=== PATIENT | female | born 1930 | race Caucasian/White ===

== ENCOUNTER 2018-05-03 09:40 | Observation (INO) | payer MEDICARE, BC ==
--- NOTE | 2018-05-03 10:09 | Emergency Department Record ---
History of Present Illness - General Chief Complaint: Confusion Stated Complaint: Confusion Time Seen by Provider: 05/03/18 09:56 Source: Patient, Family Mode of Arrival: Ambulatory Limitations: No limitations - History of Present Illness Initial Comments: The patient is here with her son due to being confused for about 3 days. The confusion seems to be waxing and waning and has gotten progressively worse. There is no hx of trauma, fall, fever, chills, vomiting, or diarrhea. Presently the patient is only complaining of pain all over. When asked if she can elaborate on that she is unable to. Per her son the patient's gait is more unsteady than normal. MD Complaint: Confusion Onset/Timin -: Days(s) Severity: Mild Consistency: Intermittent Context: Unknown Associated Symptoms: Headaches - Related Data Allergies Allergy/AdvReac Type Severity Reaction Status Date / Time meperidine HCl [From Demerol] Allergy Severe SWELLING Unverified 07/21/16 16:19 (GENERAL) Travel Screening - Travel/Exposure Within Last 30 Days Have you traveled within the last 30 days?: No Review of Systems Constitutional: Denies: Chills, Fever Eyes: Denies: Eye discharge ENT: Denies: Congestion Respiratory: Denies: Cough, Dyspnea Cardiovascular: Denies: Arrhythmia, Chest pain Endocrine: Denies: Fatigue Gastrointestinal: Denies: Abdominal pain, Diarrhea, Nausea, Vomiting Genitourinary: Denies: Dysuria Musculoskeletal: Denies: Arthralgia Neurological: Reports: Abnormal gait, Confusion Past Medical History - SOCIAL HISTORY Smoking Status: Former smoker - RESPIRATORY Hx Respiratory Disorders: No - CARDIOVASCULAR Hx Cardio Disorders: Yes Hx Heart Attack: Yes (15-20 years ago) Hx Hypertension: Yes (now hypotensive) Hx Hypotension: Yes Comment:: health works every day - NEURO Hx Neuro Disorders: Yes Hx CVA: Yes Hx Seizures: No - GI Hx GI Disorders: No - Hx Genitourinary Disorders: No Comment:: hysterectomy - ENDOCRINE Hx Endocrine Disorders: No - MUSCULOSKELETAL Hx Musculoskeletal Disorders: Yes Hx Arthritis: Yes Comment:: pain and cyst right index finger - PSYCH Hx Psych Problems: No - HEMATOLOGY/ONCOLOGY Hx Hematology/Oncology Disorders: No Hx Blood Transfusions: No Family Medical History Any Significant Family History?: Yes Hx Heart Disease: Father, Mother Hx Stroke: Grandparents Physical Exam - General General Appearance: Alert, Cooperative, No acute distress - Head Head exam: Atraumatic, Normocephalic - Eye Eye exam: Normal appearance, PERRL, EOMI - ENT ENT exam: Normal exam, Mucous membranes moist, Normal external ear exam, Normal orophraynx, TM's normal bilaterally Throat exam: Normal inspection. negative: Tonsillar erythema, Tonsillar exudate - Neck Neck exam: Normal inspection, Full ROM. negative: Lymphadenopathy, Meningismus , Tenderness - Respiratory Respiratory exam: Normal lung sounds bilaterally. negative: Respiratory distress - Cardiovascular Cardiovascular Exam: Normal heart sounds, Irregular rhythm. negative: Regular rate, Normal rhythm - GI/Abdominal GI/Abdominal exam: Soft, Normal bowel sounds. negative: Tenderness - Extremities Extremities exam: Normal inspection, Full ROM, Normal capillary refill. negative: Tenderness - Back Back exam: Reports: Normal inspection - Neurological Neurological exam: Abnormal gait, Alert. negative: Normal gait, Oriented X3 ( The patient is oriented to name, place but not sure about the date. ) - Psychiatric Psychiatric exam: negative: Agitated, Anxious - Skin Skin exam: negative: Rash Course Vital Signs 05/03/18 09:45 Temperature 97.5 F L Pulse Rate 68 Respiratory 18 Rate Blood Pressure 131/73 Pulse Ox 95 - Reevaluation(s) Reevaluation #1: The patient is doing OK at this time. She does have a mild MARIA and has been quite unsteady on her feet. Due to that fact I do feel the patient will need to stay in the hospital overnight. We will contact her PCP for further eval. 05/03/18 11:38 Reevaluation #2: I did discuss the issues with Dr. Ruiz who is environment artist for admissions and he did agree to admit the patient to the hospital overnight. 05/03/18 12:04 Medical Decision Making - Data Complexity MDM Data: Labs Ordered and/or Reviewed, X-Ray Ordered and/or Reviewed, EKG Ordered and/or Reviewed - Lab Data Result diagrams: 05/03/18 10:10 05/03/18 10:10 - EKG Data -: EKG Interpreted by Me EKG: Abnormal EKG (Afib with LBBB. (old)) - Radiology Data Radiology results: Report reviewed (Head CT: Neg for bleed or acute changes per Rad.), Image reviewed (CXR: No acute dz pattern.) Disposition Disposition: Admit Clinical Impression: Weakness, Confusion and disorientation Disposition: Still a Patient at [facility] Decision to Admit: Admit from ER Decision to Admit Date: 05/03/18 Decision to Admit Time: 12:05 Accepting Physician: Sara Time Discussed w/Accepting Physician: 12:05 Condition: (2) Stable Time of Disposition: 12:05 Quality - Quality Measures Quality Measures: N/A - Blood Pressure Screening View Details: Yes Does Patient Have Any of the Following: No Blood Pressure Classification: Pre-Hypertensive BP Reading Systolic Measurement: 131 Diastolic Measurement: 73 Screening for High Blood Pressure: < Pre-Hypertensive BP, F/U Documented > [ [id number]] Pre-Hypertensive Follow-up Interventions: Referral to alternative/primary care provider.
[2018-05-03 10:19] LABS: BASO % 0.1 % (0-6); EOS % 0.2 % (0-6); GRAN % 79.3 % (47-80); HEMOGLOBIN 12.8 gm/dl (11.6-16.0); LYMPH % 9.7 % (16-45); MEAN CELL VOLUME 91.8 fl (81-97); MEAN CORPUSCULAR HEMOGLOBIN 30.1 pg (27-33); MEAN CORPUSCULAR HGB CONC 32.8 g/dl (32-36); MEAN PLATELET VOLUME 9.8 fl (7.4-10.4); MONO % 10.7 % (0-9); PLATELET COUNT 223 K/uL (130-400); RED BLOOD COUNT 4.25 M/uL (3.80-5.40); RED CELL DISTRIBUTION WIDTH 13.4 % (11.5-14.5)
[2018-05-03 10:28] LABS: BLOOD UREA NITROGEN 29 mg/dL (8-23); CREATININE 1.3 mg/dL (0.5-0.9); EST GLOMERULAR FILTRATION RATE 41 mL/min
[2018-05-03 10:29] LABS: TOTAL PROTEIN 6.8 g/dL (6.6-8.7)
[2018-05-03 10:31] LABS: GLUCOSE,RANDOM 112 mg/dL (74-109); INR 1.2; PARTIAL THROMBOPLASTIN TIME 34.8 SECONDS (24.5-39.1)
[2018-05-03 10:33] LABS: ALB/GLOB RATIO 1.1 (1.1-1.8); ALBUMIN 3.5 g/dL (4.0-5.0); ALKALINE PHOSPHATASE 83 U/L (35-104); ALT/SGPT 18 U/L (<33); AST/SGOT 29 U/L (10.0-35.0)
[2018-05-03 10:34] LABS: CREATINE PHOSPHOKINASE 259 U/L (26-192)
[2018-05-03 10:38] LABS: CKMB 3.3 ng/mL (<3.77)
[2018-05-03 10:44] LABS: THYROID STIMULATING HORMONE 2.31 uIU/mL (0.270-4.20)
[2018-05-03 11:13] LABS: URINE APPEARANCE CLEAR; URINE BILIRUBIN NEGATIVE (NEGATIVE); URINE BLOOD NEGATIVE (NEGATIVE); URINE COLOR YELLOW; URINE GLUCOSE (UA) NEGATIVE (NEGATIVE); URINE KETONE TRACE (NEGATIVE); URINE LEUKOCYTE ESTERASE NEGATIVE (NEGATIVE); URINE NITRITE NEGATIVE (NEGATIVE); URINE PROTEIN NEGATIVE (NEGATIVE)
[2018-05-03] MEDS ORDERED: ACETAMINOPHEN 325 MG TAB PO ONE (11:20)
[2018-05-03] MEDS ORDERED: 0.9 % SODIUM CHLORIDE 1,000 ML BAG IV ONE (11:21)
[2018-05-03] MEDS ORDERED: NITROGLYCERIN 0.4MG SL TABLET #25 BTL SL PRN (14:02)
[2018-05-03 16:29] LABS: CKMB 2.9 ng/mL (<3.77)
[2018-05-03] MEDS: METOPROLOL TART 25 MG TABLET PO SCH (21:53)
[2018-05-03] MEDS: APIXABAN 5MG TABLET PO SCH (21:54)
[2018-05-04 00:18] LABS: CKMB 2.2 ng/mL (<3.77)
[2018-05-04] MEDS ORDERED: PANTOPRAZOLE SODIUM 40 MG TABLET PO SCH (07:00)
--- NOTE | 2018-05-04 07:26 | CT SCAN REPORT ---
EXAM: CT OF THE BRAIN WITHOUT CONTRAST HISTORY: CONFUSION. TECHNIQUE: Sequential axial images were obtained from the foramen magnum to the vertex without contrast administration. Comparison: 07/10/16. FINDINGS: The brain volume is normal. There is periventricular small vessel ischemia. No large territorial infarct, hemorrhage, mass effect, or midline shift. There is intracranial vascular calcification. The orbits appear normal. There is right ethmoid sinus disease. The mastoid air cells appear normal. IMPRESSION: 1. PERIVENTRICULAR SMALL VESSEL ISCHEMIA. 2. INTRACRANIAL VASCULAR CALCIFICATION. 3. RIGHT POSTERIOR ETHMOID SINUS DISEASE. [facility] [id number] [facility]
--- NOTE | 2018-05-04 07:28 | RADIOLOGY REPORT ---
EXAM: CHEST, TWO VIEWS HISTORY: DIFFICULTY IN BREATHING. TECHNIQUE: Frontal and lateral views of the chest were performed. Comparison: 11/13/14. FINDINGS: The heart size is normal. No pulmonary vascular congestion. No infiltrate or pleural effusion. Compression fracture deformity in the mid thoracic spine. Multilevel degenerative change. IMPRESSION: 1. NO ACUTE PULMONARY DISEASE PROCESS. 2. COMPRESSION FRACTURE DEFORMITY IN THE MID THORACIC SPINE. [facility]: [id number] [facility]
--- NOTE | 2018-05-04 07:59 | Discharge Note ---
VTE H&P Assessment - Risk for VTE Risk for VTE: No Risk Level: Very Low Risk Assessment Date: 05/04/18 Risk Assessment Time: 07:59 VTE Orders Placed or Will Be Placed: No VTE Reason for No Prophylaxis: Not Indicated Discharge Medications - Discharge Medications Home Medications: Ambulatory Orders Multivitamin [Multi-Vitamin Daily] 1 each PO DAILY 07/03/14 [Last Taken 03/31/16 ] Nitroglycerin [Nitrostat] 0.8 mg SL ASDIR PRN 07/03/14 [Last Taken Unknown] [place]-3 Fatty Acids/Fish Oil [Fish Oil 1,000 mg Softgel] 1,000 mg PO DAILY 11/26 [Last Taken 03/31/16] Calcium Citrate 200 mg PO DAILY tab 03/28/18 [Last Taken Unknown] Cholecalciferol (Vitamin D3) [Vitamin D3] 1,000 unit PO DAILY cap 03/28/18 [ Last Taken Unknown] Teriparatide [Forteo] 20 mcg SQ QD ml 03/28/18 [Last Taken Unknown] Discharge Note - Date Date of Discharge Note: 05/04/18 Disposition: Home, Self-Care Condition: (2) Stable Additional Instructions: follow up with Dr. Funez or Dr Del Toro in one week continue her home meds except stop dyazide may need to go back on it if her BP goes up or she develops swelling in her legs Forms: Patient Portal Access
[2018-05-04] MEDS ORDERED: TERIPARATIDE 20 MCG SQ SCH (10:00)
[2018-05-04] MEDS ORDERED: ATORVASTATIN 20 MG TABLET PO SCH (10:00)
[2018-05-04] MEDS ORDERED: DESVENLAFAXINE SUCCINATE 50 MG PO SCH (10:00)
[2018-05-04] MEDS ORDERED: DONEPEZIL HCL 5 MG TABLET PO SCH (10:00)
[2018-05-04] MEDS ORDERED: TRIAMTERENE 37.5/HCTZ 25 CAPSULE PO SCH (10:00)
[2018-05-04] MEDS: APIXABAN 5MG TABLET PO SCH (10:38)
[2018-05-04] MEDS: METOPROLOL TART 25 MG TABLET PO SCH (10:44)
[2018-05-04] MEDS ORDERED: PNEUM 13-VAL/PF 0.5 ML IM ONE (10:53)
--- NOTE | 2018-05-09 09:10 | History and Physical Report ---
CHIEF COMPLAINT: Increased confusion. HISTORY OF PRESENT ILLNESS: This is an 88-year-old female who presented to the emergency department with increased confusion over the last 3-4 days. Family states this is a new thing; however, the patient is on Aricept. The patient states that the patient is more confused than usual. The patient was evaluated in the emergency department by Dr. Davidson with a normal workup and a CT scan of the head which was negative. Chest x-ray was negative. EKG showing left bundle-branch block. Laboratory unremarkable. Cardiac enzymes negative. Urine negative. Trace ketones. Specific gravity 1.010. BUN 29, creatinine 1.3. PAST MEDICAL HISTORY: Coronary artery disease with NV 15-20 years ago, history of hypertension but it has normalized recently, CVA in the past, arthritis, and dementia. She has a history of atrial fibrillation in the past. PAST SURGICAL HISTORY: Hysterectomy, cataract surgery right, left hip fracture repair, right LHA. MEDICATIONS: 1. Thiazide 1 a day 37.5/25 daily. 2. Forteo 20 mg daily. 3. Crestor 10 mg a day. 4. Prilosec 20 mg a day. 5. [place] 3, 1000 mg a day. 6. Nitroglycerin p.r.n. 7. Multivitamin 1 a day. 8. Metoprolol tartrate 25 mg b.i.d. 9. Aricept 10 mg a day. 10. Pristiq 50 mg a day. 11. Vitamin D3, 1000 units a day. 12. Calcium citrate 200 mg a day. 13. Eliquis 5 mg b.i.d. ALLERGIES: DEMEROL. FAMILY/PSYCHOSOCIAL HISTORY: Heart disease father and mother and strokes for the grandparents. Former smoker, started in 1951 and stopped in 1994, one pack a day. REVIEW OF SYSTEMS: HEENT: No upper respiratory infection symptoms, cough, cold, or congestion. Cardiovascular: No chest pain, palpitations, or arrhythmia. Respiratory: No cough, cold, or congestion. Gastrointestinal: No nausea, vomiting, diarrhea, black stools, or bloody stools. Genitourinary: No dysuria, hematuria, frequency, or burning on urination. Musculoskeletal: She complains of pain all over, cannot localize exactly where the pain is. Neurological: She has a history of dementia, on Aricept. History of CVA in the past. She talks appropriately but does not follow a thought pattern. She does not remember what she said. Short-term memory is poor. 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 Endocrine: No diabetes or thyroid disease. Integument: No rash, ulcers, change in moles, or yellow skin. PHYSICAL EXAMINATION: VITALS: Height 5 feet 6 inches, weight 152 pounds. Temperature 97.5, pulse 97, blood pressure 111/58, respiratory rate 16, pulse ox 97% on room air, weight 152 pounds, weight on the floor. HEENT: Pupils are equal, round, and reactive to light and accommodation. Extraocular muscles are intact. Throat is clear. Nose is clear. Tympanic membranes are pierce. NECK: Supple. No jugular venous distention. No hepatojugular reflux. No carotid bruits. Thyroid is smooth. CARDIOVASCULAR: Regular rate and rhythm without murmurs, clicks, rubs, or gallops. RESPIRATORY: Clear to auscultation and percussion. ABDOMEN: Soft, nontender. No hepatosplenomegaly, no masses, no tenderness. Bowel sounds are active. No bruits. EXTREMITIES: No pitting edema. No cyanosis, no clubbing. Full range of motion. Peripheral pulses are good. BREASTS: Deferred. GYNECOLOGICAL: Exam deferred. RECTAL: Exam deferred. NEUROLOGIC: Cranial nerves II-XII intact. No gross defects. Sensation normal, strength normal. Deep tendon reflexes equal bilaterally with Babinski negative. MENTAL STATUS: Alert but disoriented to time and place, not person. IMPRESSION: 1. Increased confusion. 2. Dementia. 3. Atrial fibrillation and on Eliquis. 4. Left bundle-branch block. 5. Some gait abnormalities per the family, fall risk is there. 6. Hypercholesterolemia. 7. Osteoporosis. 8. Coronary artery disease with an NV 20 years ago. 9. She did have hypertension but that seems to have resolved. PLAN: Observation. Neuro checks. [facility]
--- NOTE | 2018-05-09 09:20 | Discharge Summary ---
DISCHARGE DIAGNOSES: 1. Dehydration. 2. Dementia exacerbation. 3. Coronary artery disease. 4. Hypercholesterolemia. 5. Atrial fibrillation with rate controlled and on Eliquis. ATTENDING PHYSICIAN: Gavino Ruiz DO REASON FOR HOSPITALIZATION: Increased confusion per family. Patient with known dementia. Presented to the ER, evaluated by Dr. Davidson. Family knows that she is more confused in the last couple of days. She has been on Aricept for a long time. They were concerned. They brought her in for evaluation. Dr. Davidson worked her up with a head CT which was normal. Chest x-ray showing no acute changes. EKG showing atrial fibrillation, left bundle-branch block, no acute changes. Laboratory unremarkable. Urine is negative. He was concerned about the increased confusion and placed her in the hospital for observation for further evaluation for the possibility of a subtle stroke. Neuro checks were performed, unremarkable. NIH scale 1. She is disoriented to place and the president. She is able to tell me the location and her name. She is very forgetful and loses her thought if she is talking. Cardiac enzymes were negative x3, both CK-MB and troponin T. Thyroid is normal at 2.3, TSH is normal at 2.31. BUN 29, creatinine 1.3, potassium 3.5, sodium 135. White count 11,000, hemoglobin 12.8. Because of the dehydration, Dyazide will be recommended to be stopped. It may need to be put back on if her blood pressure goes up or she gets edema of her legs. Right now she has no pedal edema and her blood pressure is 118/73. She is back to her baseline neurologically. THERAPY PROVIDED: IV fluids cautiously in the ER. Otherwise she hydrated herself orally. She was much improved almost immediately when she got to the floor, according to the family. HOSPITAL COURSE: Unremarkable. CONDITION ON DISCHARGE: Stable and back to her baseline neurologically, walking around the room with a walker. DISCHARGE INSTRUCTIONS: Follow up with Dr. Kelley or Dr. Del Toro in 1 week. Continue her home medications except for the Dyazide, which we will stop. Her home medications are Forteo 20 mg subcu daily, Crestor 10 mg daily, Prilosec 20 mg daily, omega 3 1000 mg daily, Nitrostat p.r.n., multivitamin 1 a day, metoprolol tartrate 25 mg b.i.d., Aricept 10 mg daily, Pristiq 50 mg daily, vitamin D3 1000 units daily, Eliquis 5 mg b.i.d., calcium citrate 200 mg daily. We will stop the Dyazide. CC: MD Dr. Warren Bonilla
== END 2018-05-04 11:40 | disposition home or self-care (01) ==
LOC: ER 09:40 → MEDSURG 13:01
PROVIDERS: ADMIT Emergency Medicine; ATTEND Emergency Medicine
DX: R53.1 Weakness (principal); R51 Headache; E86.0 Dehydration; I95.9 Hypotension, unspecified; M19.90 Unspecified osteoarthritis, unspecified site; I48.91 Unspecified atrial fibrillation; Z79.01 Long term (current) use of anticoagulants; I25.2 Old myocardial infarction; I25.10 Atherosclerotic heart disease of native coronary artery without angina pectoris; Z86.73 Personal history of transient ischemic attack (TIA), and cerebral infarction without residual deficits; Z95.5 Presence of coronary angioplasty implant and graft; Z95.1 Presence of aortocoronary bypass graft; F03.90 Unspecified dementia, unspecified severity, without behavioral disturbance, psychotic disturbance, mood disturbance, and anxiety; Z96.642 Presence of left artificial hip joint
CPT/HCPCS: 82550; 85025; 85730; 85610; 82553 ×2; 80053; 81003; 84443; 84484 ×2; 71046; 70450; 93005 ×2; 93010 ×2; 90670; 90686; G0378 ×2; J3490 ×2; 96360; 99217; 99220; 99285; J7030

== ENCOUNTER 2018-05-22 11:45 | Emergency (ER) | payer MEDICARE, BC ==
[2018-05-22] MEDS ORDERED: 0.9 % SODIUM CHLORIDE 1000ML 1,000 ML IV PRN (12:12)
--- NOTE | 2018-05-22 12:19 | Emergency Department Record ---
History of Present Illness - General Chief Complaint: Dizziness Stated Complaint: DIZZINESS Time Seen by Provider: 05/22/18 12:12 Source: Patient, Family (son - floor care specialist) Mode of Arrival: Ambulatory Limitations: Altered mental status - History of Present Illness Initial Comments: Pt with hx of dementia with recent admission 2 weeks ago for "dehydration". Recently not feeling "good" and more confused per son. Pt denies pain, no MARIA, CP, fever, nausea, weakness. "I just don't feel well and I can't explain it". Son is persistant with her to drink fluids at home drinking 72 oz of Gatoraid a day. Pt able to do self care and to be at home alone for short periods of time. Onset/Timin -: Days(s) Timing: Unsure Description: Other History of Same: No History of Trauma: No Severity: Mild Improves With: Nothing Worsens With: Nothing Associated Symptoms: Other - Stephanie Coma Scale Eye Response: (4) Open spontaneously Motor Response: (6) Obeys commands Verbal Response: (5) Oriented Stephanie Total: 15 - Related Data Previous Rx's Medication Instructions Recorded Potassium Bicarbonate/Cit AC 25 meq PO DAILY 4 Days #4 tabef 05/22/18 [K-Lyte] Allergies Allergy/AdvReac Type Severity Reaction Status Date / Time meperidine HCl [From Demerol] Allergy Severe SWELLING Unverified 05/16/18 10:37 (GENERAL) Travel Screening - Travel/Exposure Within Last 30 Days Have you traveled within the last 30 days?: No Review of Systems Constitutional: Denies: Chills, Fever, Malaise, Weakness, Weight change Eyes: Denies: Eye discharge, Eye pain, Vision change ENT: Denies: Congestion, Dental pain, Throat pain Respiratory: Denies: Cough, Dyspnea Cardiovascular: Reports: Other (hx of A fib. ). Denies: Chest pain, Dyspnea on exertion, Syncope Endocrine: Denies: Fatigue, Polydipsia, Polyuria Gastrointestinal: Denies: Abdominal pain, Constipation, Nausea, Vomiting Musculoskeletal: Denies: Arthralgia, Joint swelling Skin: Denies: Bruising Neurological: Reports: Confusion. Denies: Abnormal gait, Headache, Numbness, Seizure, Tremors, Weakness Psychiatric: Denies: Anxiety, Suicidal thoughts Hematological/Lymphatic: Denies: Blood Clots Past Medical History - SOCIAL HISTORY Smoking Status: Former smoker - RESPIRATORY Hx Respiratory Disorders: No - CARDIOVASCULAR Hx Cardio Disorders: Yes Hx Heart Attack: Yes (15-20 years ago) Hx Hypertension: Yes (now hypotensive) Hx Hypotension: Yes Comment:: health works every day - NEURO Hx Neuro Disorders: Yes Hx CVA: Yes Hx Seizures: No - GI Hx GI Disorders: No - Hx Genitourinary Disorders: No Comment:: hysterectomy - ENDOCRINE Hx Endocrine Disorders: No - MUSCULOSKELETAL Hx Musculoskeletal Disorders: Yes Hx Arthritis: Yes Comment:: pain and cyst right index finger - PSYCH Hx Psych Problems: No - HEMATOLOGY/ONCOLOGY Hx Hematology/Oncology Disorders: No Hx Blood Transfusions: No Family Medical History Any Significant Family History?: Yes Hx Heart Disease: Father, Mother Hx Stroke: Grandparents Physical Exam - General General Appearance: Alert, Oriented x3, Cooperative, No acute distress Limitations: Altered mental status - Head Head exam: Atraumatic Head exam detail: negative: Contusion, Mckeon's sign, Hematoma - Eye Eye exam: EOMI. negative: Nystagmus - ENT ENT exam: Mucous membranes moist, Normal external ear exam, Normal orophraynx - Neck Neck exam: Normal inspection, Full ROM. negative: Lymphadenopathy, Tenderness - Respiratory Respiratory exam: Normal lung sounds bilaterally. negative: Respiratory distress, Rhonchi - Cardiovascular Cardiovascular Exam: Normal heart sounds, Irregular rhythm, Tachycardia Peripheral Pulses: 2+: Radial (R), Radial (L), Dorsalis Pedis (R), Dorsalis Pedis (L) - GI/Abdominal GI/Abdominal exam: Soft, Normal bowel sounds. negative: Guarding, Rigid, Tenderness - Extremities Extremities exam: Normal inspection, Full ROM. negative: Joint swelling - Back Back exam: Reports: Normal inspection. Denies: Paraspinal tenderness - Neurological Neurological exam: Alert, CN II-XII intact, Normal gait, Oriented X3 - Psychiatric Psychiatric exam: Normal affect, Normal mood. negative: Anxious, Flat affect - Skin Skin exam: Normal color. negative: Abrasion, Cyanosis Course Vital Signs 05/22/18 11:51 Temperature 97.8 F Pulse Rate 100 H Respiratory 20 Rate Blood Pressure 149/92 Pulse Ox 97 - Reevaluation(s) Reevaluation #1: 05/22/18 14:42 Pt with son. Labs normal except low K+. Oral supplement given in ED and for home. Concern with home situation and progressive dementia and visual issues. Seen in ED by Device Engineer and long talk with son alone and with patient. Plan and advise given by social studies teacher who has discussed with Dr. Funez. Plan is for home health aide and further eval by Dr. Funez. Procedures - EKG Initial Date: 05/22/18 Time: 12:25 EKG: No Acute Changes (A fib at 88), Abnormal EKG Medical Decision Making - Lab Data Result diagrams: 05/22/18 12:30 05/22/18 12:30 Disposition Disposition: Discharge Clinical Impression: Confusion state, Visual acuity reduced, Hypokalemia Disposition: Home, Self-Care Condition: (2) Stable Instructions: Dementia (ED) Additional Instructions: tree and shrub worker provided home care information. Potassium supplement daily for 4 days. Dietary potassium recommended. Prescriptions: Potassium Bicarbonate/Cit AC [K-Lyte] 25 meq PO DAILY 4 Days #4 tabef Forms: Patient Portal Access Quality - Quality Measures Quality Measures: N/A - Blood Pressure Screening Does Patient Have Any of the Following: Active Dx of HTN Blood Pressure Classification: Hypertensive Reading Systolic Measurement: 149 Diastolic Measurement: 92 Screening for High Blood Pressure: Patient Exclusion, Hx of HTN [G9744]
[2018-05-22 12:38] LABS: BASO % 0.3 % (0-6); EOS % 0.7 % (0-6); GRAN % 70.2 % (47-80); HEMATOCRIT 38.5 % (35.0-47.0); HEMOGLOBIN 12.3 gm/dl (11.6-16.0); LYMPH % 17.3 % (16-45); MEAN CELL VOLUME 92.5 fl (81-97); MEAN CORPUSCULAR HEMOGLOBIN 29.6 pg (27-33); MEAN CORPUSCULAR HGB CONC 31.9 g/dl (32-36); MEAN PLATELET VOLUME 9.6 fl (7.4-10.4); MONO % 11.5 % (0-9); PLATELET COUNT 259 K/uL (130-400); RED BLOOD COUNT 4.16 M/uL (3.80-5.40); RED CELL DISTRIBUTION WIDTH 14.2 % (11.5-14.5); WHITE BLOOD COUNT W/O DIFF 7.5 K/uL (4.2-12.2)
[2018-05-22 12:56] LABS: BILIRUBIN,TOTAL 0.6 mg/dL (0.2-1.0); TOTAL PROTEIN 6.6 g/dL (6.6-8.7)
[2018-05-22 13:01] LABS: ALBUMIN 3.5 g/dL (4.0-5.0)
[2018-05-22 13:05] LABS: ALB/GLOB RATIO 1.1 (1.1-1.8)
[2018-05-22] MEDS ORDERED: POTASSIUM BICARB./CIT AC 25 MEQ EFF.TAB PO STA (13:11)
[2018-05-22 13:40] LABS: URINE APPEARANCE CLEAR; URINE BILIRUBIN NEGATIVE (NEGATIVE); URINE BLOOD NEGATIVE (NEGATIVE); URINE COLOR YELLOW; URINE GLUCOSE (UA) NEGATIVE (NEGATIVE); URINE KETONE NEGATIVE (NEGATIVE); URINE LEUKOCYTE ESTERASE TRACE (NEGATIVE); URINE NITRITE NEGATIVE (NEGATIVE); URINE PROTEIN NEGATIVE (NEGATIVE)
[2018-05-22 13:49] LABS: URINE EPITHELIAL CELLS >50 (FEW); URINE RBC 0 - 2 (NONE SEEN); URINE TRANSITIONAL EPI CELLS 0 - 2 /hpf
[2018-05-22 13:50] LABS: URINE BACTERIA 1+; URINE MUCUS LIGHT
== END 2018-05-22 15:15 | disposition home or self-care (01) ==
LOC: ER 11:45
DX: E87.6 Hypokalemia (principal); R42 Dizziness and giddiness; R41.0 Disorientation, unspecified; H53.9 Unspecified visual disturbance; I10 Essential (primary) hypertension; I48.91 Unspecified atrial fibrillation; I25.2 Old myocardial infarction; Z87.891 Personal history of nicotine dependence
CPT/HCPCS: 36416; 71046; 80053; 80162; 81001; 82948; 85025; 93005; 93010; 99284

== ENCOUNTER 2018-06-25 19:34 | Emergency (ER) | payer MEDICARE, BC ==
--- NOTE | 2018-06-25 19:48 | Emergency Department Record ---
History of Present Illness - General Chief Complaint: Fall Injury Stated Complaint: FALL/LT WRIST/HAND PAIN Time Seen by Provider: 06/25/18 19:40 Source: Patient, Family Mode of Arrival: Ambulatory Limitations: No limitations - History of Present Illness Initial Comments: 88 yo female presents after a witnessed fall getting out of her chair. She fell on a left out stretched hand. No LOC. No head involvement per the son who is a witness. She has pain and swelling with bleeding at the left wrist injury site. She denies head or neck injury or pain. No chest or abdominal pain. She is on Eliquis. She has chronic weakness and dizziness with frequent falls. She injured her right ankle a few days ago as well. She has some pain and swelling but she has been ambulating with help. She has a prior left wrist fracture that required surgery with Dr Leos. The patient has a history of dementia, strokes, poor vision, atrial fibrillation. The son states that the patient has been on a decline over the last several months regarding her memory, strength, ability to carry out daily tasks. MD Complaint: Fall -: Minutes(s) Fall From: Chair When Fall Occurred: 1 hour [employer] Fall Witnessed: Yes, by family Place Fall Occurred: Home Loss of Consciousness: None Prolonged Down Time?: No Symptoms Prior to Fall: Dizziness Location: Other Location - Extremities: Left: Forearm, Right: Ankle Severity: Moderate Quality: Aching Associated Symptoms: Vertigo, Weakness - [place] Coma Scale Eye Response: (4) Open spontaneously Motor Response: (6) Obeys commands Verbal Response: (5) Oriented [place] Total: 15 - Related Data Home Medications Medication Instructions Recorded Confirmed Last Taken Donepezil HCl [Aricept] 5 mg PO BID 06/25/18 06/25/18 Unknown Triamterene/Hydrochlorothiazid 1 each PO DAILY 06/25/18 06/25/18 Unknown [Triamterene-Hctz 37.5-25 mg Cp] Allergies Allergy/AdvReac Type Severity Reaction Status Date / Time meperidine HCl [From Demerol] Allergy Severe SWELLING Verified 06/25/18 19:39 (GENERAL) Review of Systems Constitutional: Reports: Weakness (chronic). Denies: Chills, Fever, Malaise Eyes: Reports: Vision change (chronic poor vision). Denies: Eye discharge, Eye pain, Photophobia ENT: Denies: Congestion, Throat pain Respiratory: Denies: Cough, Dyspnea Cardiovascular: Reports: Edema. Denies: Chest pain, Dyspnea on exertion, Palpitations, Syncope Endocrine: Denies: Fatigue Gastrointestinal: Denies: Abdominal pain, Diarrhea, Nausea, Vomiting Genitourinary: Denies: Dysuria Musculoskeletal: Reports: As per HPI, Arthralgia, Joint swelling Skin: Reports: Bruising. Denies: Change in color, Rash Neurological: Reports: Weakness. Denies: Headache, Numbness Psychiatric: Denies: Anxiety Hematological/Lymphatic: Denies: Anemia, Easy bleeding, Easy bruising, Swollen glands Past Medical History - SOCIAL HISTORY Smoking Status: Former smoker - RESPIRATORY Hx Respiratory Disorders: No - CARDIOVASCULAR Hx Cardio Disorders: Yes Hx Heart Attack: Yes (15-20 years ago) Hx Hypertension: Yes (now hypotensive) Hx Hypotension: Yes Comment:: health works every day - NEURO Hx Neuro Disorders: Yes Hx CVA: Yes Hx Seizures: No - GI Hx GI Disorders: No - Hx Genitourinary Disorders: No Comment:: hysterectomy - ENDOCRINE Hx Endocrine Disorders: No - MUSCULOSKELETAL Hx Musculoskeletal Disorders: Yes Hx Arthritis: Yes Comment:: pain and cyst right index finger - PSYCH Hx Psych Problems: No - HEMATOLOGY/ONCOLOGY Hx Hematology/Oncology Disorders: No Hx Blood Transfusions: No Family Medical History Hx Heart Disease: Father, Mother Hx Stroke: Grandparents Physical Exam - General General Appearance: Alert, Cooperative, No acute distress Limitations: No limitations - Head Head exam: Atraumatic, Normocephalic, Normal inspection Head exam detail: negative: Abrasion, Contusion, Hematoma, Laceration - Eye Eye exam: Normal appearance, PERRL. negative: Conjunctival injection, Scleral icterus - ENT ENT exam: Normal exam Ear exam: Normal external inspection Nasal Exam: Normal inspection Mouth exam: Normal external inspection - Neck Neck exam: Normal inspection, Full ROM. negative: Tenderness - Respiratory Respiratory exam: Normal lung sounds bilaterally. negative: Respiratory distress - Cardiovascular Cardiovascular Exam: Regular rate, Normal rhythm, Normal heart sounds Peripheral Pulses: 2+: Radial (R), Radial (L) (Intact radial pulse) - GI/Abdominal GI/Abdominal exam: Soft, Normal bowel sounds. negative: Distended, Guarding, Tenderness - Rectal Rectal exam: Deferred - exam: Deferred - Extremities Extremities exam: Joint swelling, Normal capillary refill, Tenderness. negative : Normal inspection, Full ROM Image of Full Body: 1 - distal forearm tenderness and swelling, 4mm laceration ulnar side of the forearm with swelling 2 - tenderness, swelling, bruising - Back Back exam: Reports: Normal inspection - Neurological Neurological exam: Alert, Motor sensory deficit. negative: Altered (at her baseline per son) - Psychiatric Psychiatric exam: Normal affect, Normal mood. negative: Agitated, Anxious - Skin Skin exam: Dry, Intact, Normal color, Warm Course - Reevaluation(s) Reevaluation #1: XR from 03/2016 reviewed. Comminuted left distal wrist fracture. Transferred to [facility] for definitive care. EKG 2004 Atrial fibrillation rate of 79, axis left, LBBB, no changes from prior EKG 06/25/18 20:05 The skin was cleaned with ShurClens and Betadine followed by copious irrigation. 06/25/18 20:19 The XR was reviewed. Two bone distal forearm fracture with displacement and overlap. [facility] ED was contacted. I MAURICE Rubio of the ED She accepts the patient for transfer She will be kept NPO, IV antibiotics, splinted. She ate diner at 6:15pm 06/25/18 20:28 Tetanus updated in ED She was made NPO KCL used to replace K She was splinted to prevent movement during transfer ED to ED transfer Awaiting available EMS for transfer 06/25/18 20:46 06/25/18 21:06 Waiting on EMS but notified of arrival soon Pain is controlled. Medical Decision Making - Lab Data Result diagrams: 06/25/18 19:58 06/25/18 19:58 Disposition Disposition: Transfer Clinical Impression: Atrial fibrillation, Hypokalemia, LBBB (left bundle branch block), Mild dementia Open forearm fracture Qualifiers: Encounter type: initial encounter Open fracture type: open type I or II Laterality: left Qualified Code(s): S52.92XB - Unspecified fracture of left forearm, initial encounter for open fracture type I or II Disposition: Acute Care Hospital Transfer Transfer To: [facility]: Reason For Transfer: Open Forearm Fracture Accepting Physician: Ramiro Time Discussed w/Accepting Physician: 20:28 Condition: (1) Good Forms: Patient Portal Access Time of Disposition: 20:28 Quality - Quality Measures Quality Measures: N/A - Blood Pressure Screening Does Patient Have Any of the Following: Active Dx of HTN Blood Pressure Classification: Hypertensive Reading Systolic Measurement: 149 Diastolic Measurement: 93 Screening for High Blood Pressure: Patient Exclusion, Hx of HTN [[id number]]
[2018-06-25] MEDS ORDERED: ACETAMINOPHEN 1,000 MG/100 ML BTL IVPB ONE (19:49)
[2018-06-25] MEDS ORDERED: SODIUM CHLORIDE 0.9% IVPB ONE (20:00)
[2018-06-25] MEDS ORDERED: CEFAZOLIN IVPB ONE (20:00)
[2018-06-25 20:03] LABS: HEMATOCRIT 35.5 % (35.0-47.0); HEMOGLOBIN 11.7 gm/dl (11.6-16.0); MEAN CELL VOLUME 90.8 fl (81-97); MEAN CORPUSCULAR HEMOGLOBIN 29.9 pg (27-33); MEAN PLATELET VOLUME 9.5 fl (7.4-10.4); PLATELET COUNT 330 K/uL (130-400); RED BLOOD COUNT 3.91 M/uL (3.80-5.40); RED CELL DISTRIBUTION WIDTH 13.3 % (11.5-14.5); WHITE BLOOD COUNT W/O DIFF 10.6 K/uL (4.2-12.2)
[2018-06-25 20:16] LABS: BILIRUBIN,TOTAL 0.3 mg/dL (0.2-1.0); CREATININE 1.1 mg/dL (0.5-0.9)
[2018-06-25 20:17] LABS: TOTAL PROTEIN 6.6 g/dL (6.6-8.7)
[2018-06-25] MEDS ORDERED: CIPROFLOXACIN LACTATE/D5W 400 MG/200 ML BAG IVPB ONE (20:17)
[2018-06-25 20:19] LABS: INR 1.3; PROTHROMBIN TIME (PATIENT) 13.3 SECONDS (9.5-12.1)
[2018-06-25 20:21] LABS: ALB/GLOB RATIO 0.9 (1.1-1.8); ALBUMIN 3.1 g/dL (4.0-5.0)
[2018-06-25] MEDS ORDERED: Diph,Pert(Acell),Tet Vac 0.5 ML SYR IM ONE (20:27)
[2018-06-25] MEDS ORDERED: SOD CHLOR 0.9% WITH KCL 40MEQ 40 MEQ/1,000 ML IV.SOLN IV ONE (20:28)
--- NOTE | 2018-06-26 14:49 | RADIOLOGY REPORT ---
EXAM: RIGHT ANKLE, THREE VIEWS HISTORY: FALL. TECHNIQUE: Three views of the right ankle were obtained. Comparison: None. Encounter: Initial. FINDINGS: Osteopenia is present. No fracture is identified. Moderate calcaneal plantar spur. Normal alignment of the ankle. IMPRESSION: NO EVIDENCE OF FRACTURE OR DISLOCATION OF THE RIGHT ANKLE. JOB NUMBER: [id number] MTDD
--- NOTE | 2018-06-26 14:55 | RADIOLOGY REPORT ---
EXAM: LEFT WRIST HISTORY: FALL, LEFT WRIST AND HAND PAIN. TECHNIQUE: Three views of the left wrist were obtained. Comparison: Wrist x-rayed 07/10/16, fractures of the distal radius and ulna. Encounter: Initial. FINDINGS: DISTAL RADIUS: Plate and screw fixation of the previously seen distal radial fracture which has healed in the interim. There is an acute transverse fracture of the distal radius, immediately proximal to the hardware. A few comminuted fracture fragments are present. The distal fracture is displaced fully posteriorly and is overriding approximately 3 cm. The radiocarpal joint remains anatomically positioned. DISTAL ULNA: Previously seen distal ulnar fracture has healed. There is an acute fracture of the distal ulna at the junction of the middle and distal third. Comminuted fracture fragments are present. The distal fracture is displaced posteriorly nearly a full shaft width and toward the ulnar direction about a half shaft width. Soft tissue swelling and deformity is noted. The bones are osteopenic. IMPRESSION: NEW FRACTURES OF THE DISTAL RADIUS AND ULNA, IMMEDIATELY PROXIMAL TO THE HARDWARE IN THE DISTAL RADIUS. JOB NUMBER: [id number] [facility]
== END 2018-06-25 21:30 | disposition short-term general hospital (02) ==
LOC: ER 19:34
DX: S52.592A Other fractures of lower end of left radius, initial encounter for closed fracture (principal); S52.692A Other fracture of lower end of left ulna, initial encounter for closed fracture; S51.812A Laceration without foreign body of left forearm, initial encounter; I48.91 Unspecified atrial fibrillation; E87.6 Hypokalemia; I44.7 Left bundle-branch block, unspecified; R53.1 Weakness; R42 Dizziness and giddiness; I10 Essential (primary) hypertension; I25.2 Old myocardial infarction; F03.90 Unspecified dementia, unspecified severity, without behavioral disturbance, psychotic disturbance, mood disturbance, and anxiety; Z91.81 History of falling; Z87.891 Personal history of nicotine dependence; Z79.01 Long term (current) use of anticoagulants; W07.XXXA Fall from chair, initial encounter; Y92.009 Unspecified place in unspecified non-institutional (private) residence as the place of occurrence of the external cause
CPT/HCPCS: 99285 ×2; 96372; 96365; 96366; 96375; 85730; 85610; 80053; 85027; 73610; 73110; 93005; 93010; G0480; J0744; 80320; 90715; J0690

== ENCOUNTER 2018-06-29 11:27 | Inpatient (IN) | payer MEDICARE, BC ==
--- NOTE | 2018-06-29 15:06 | History & Physical ---
History of Present Illness - Date Date of Service for History & Physical: 06/30/18 - History of Present Illness History of Present Illness: Mrs. Mcdaniel is a 88 y/o female with recent admission to [facility] for open fracture of the left distal radius and ulnar after a fall at home. The patient underwent ORIF on 06/26 and was discharged to [facility] for post-operative rehabilitation. The patient reports that she has had some falls at home, primarily as a result of her declining vision. The patient's son who is at bedside says that her loss of vision has really impaired her mobility and her falls are becoming for frequent and concerning. He says that he assists her with most of her daily living activities and she has a life alert necklace in case he is away from home. She does have a history of osteoporosis and is on Forteo and supplements with Vit D and calcium. She has several other co-morbidities; including atrial fibrillation on anticoagulation, dementia, and hypertension. On initial examination the patient is awake, alert and oriented but appears to have some memory lapses. She does not complain of any post-surgical pain and is able to ambulate with assistance. General - Communication Preferred Language?: Chilean - Nutrition Screening Poor oral intake > 1 week: No Unplanned weight loss in specified time frame: No Nutrition Support via tube feedings or parenteral nutrition: No Pressure Ulcer: No Significantly underweight define as BMI <18.5 kg/m2: No Albumin <2.5mg/dL: No Persistent nausea/vomiting/diarrhea >3 days: No Difficulty chewing/swallowing/mouth sores: No Admitting Diagnosis: No Nutrition Risk Score: Low Risk Past Medical History - SOCIAL HISTORY Smoking Status: Former smoker - SURGICAL HISTORY Past Surgical History: hyst. cats. right LHA. left hip fracture repair. bladder suspension x's 2. heart cath ? stents 15-20 yrs ago - RESPIRATORY Hx Respiratory Disorders: No - CARDIOVASCULAR Hx Cardio Disorders: Yes Hx Heart Attack: Yes (15-20 years ago) Hx Hypertension: Yes (now hypotensive) Hx Hypotension: Yes Comment:: health works every day - NEURO Hx Neuro Disorders: Yes Hx CVA: Yes Hx Seizures: No - GI Hx GI Disorders: No - Hx Genitourinary Disorders: No Comment:: hysterectomy - ENDOCRINE Hx Endocrine Disorders: No - MUSCULOSKELETAL Hx Musculoskeletal Disorders: Yes Hx Arthritis: Yes Comment:: pain and cyst right index finger - PSYCH Hx Psych Problems: No - HEMATOLOGY/ONCOLOGY Hx Hematology/Oncology Disorders: No Hx Blood Transfusions: No Family Medical History Hx Heart Disease: Father, Mother Hx Stroke: Grandparents H&P Meds/Allergies - Allergies Allergies: Allergies Allergy/AdvReac Type Severity Reaction Status Date / Time meperidine HCl [From Demerol] Allergy Severe SWELLING Verified 06/25/18 19:39 (GENERAL) - Active Medications Active Medications: Current Medications Apixaban (Eliquis) 5 mg PO BID GAMA Atorvastatin Calcium (Lipitor) 80 mg PO QHS GAMA Calcium/Vitamin D (Calcium 500+D Tablet) 1 tab PO DAILY GAMA Donepezil HCl (Aricept) 5 mg PO BID GAMA Metoprolol Tartrate (Lopressor) 25 mg PO BID GAMA Multivitamins/Minerals (Centrum) 1 tab PO DAILY GAMA Pantoprazole Sodium (Protonix) 40 mg PO DAILYAC GAMA Patient Own Med: (Desvenalfaxine 50 Mg) 1 each PO DAILY GAMA Patient Own Med: Forteo 20 Mcg Injection 1 each SC 1800 GAMA Triamterene/HCTZ (Dyazide) 1 udcap PO DAILY GAMA Vitamin D (Vitamin D3) 1,000 unit PO DAILY GAMA Physical Exam - General General Appearance: Alert, Oriented x3 Limitations: No limitations - Head Head exam: Normal inspection - Eye Eye exam: Normal appearance, PERRL - Respiratory Respiratory exam: Normal lung sounds bilaterally. negative: Respiratory distress - Cardiovascular Peripheral Pulses: 2+: Radial (R), Radial (L), Dorsalis Pedis (R), Dorsalis Pedis (L) - GI/Abdominal GI/Abdominal exam: Soft, Normal bowel sounds. negative: Tenderness - Extremities Extremities exam: Pedal edema (right +2) Image of Full Body: 1 - splint and sling, finger/wrist mobility intact. - Neurological Neurological exam: Oriented X3 - Psychiatric Psychiatric exam: Normal affect, Normal mood - Skin Skin exam: Erythema (right foot/ankle) Plan - Swing Bed Certification Initial Certification Due: 06/29/18 14 Day Re-Cert Due: 07/13/18 44 Day Re-Cert Due: 08/12/18 74 Day Re-Cert Due: 09/11/18 - Detailed Diagnosis and Plan (1) Distal radial fracture Current Visit: Yes Status: Acute Base Code: S52.509A - UNSP FRACTURE OF THE LOWER END OF UNSP RADIUS, INIT Comment: 06/30/18: - s/p ORIF 06/26 at [facility] - post-op splint and sling in place. - no pain at this time but can do PRN Tylenol if needed. - F/U with Orthopedic surgery Dr. Leos in 1-2 weeks. (2) Cellulitis of right ankle Current Visit: Yes Status: Acute Base Code: L03.115 - CELLULITIS OF RIGHT LOWER LIMB Comment: 06/30/18: - redness, +2 edema of the right foot/ankle. Mild infection. - on day #3/7 of Kelfex 500mg Q12H - elevate leg for edema and re-assess for worsening of skin infection. (3) Visual impairment Current Visit: Yes Status: Acute Base Code: H54.7 - UNSPECIFIED VISUAL LOSS Comment: 06/30/18: - pt visually impaired which contributes to her frequent falls. - home environmental modification needed. (4) Falls frequently Current Visit: Yes Status: Acute Base Code: R29.6 - REPEATED FALLS Comment : 06/30/19: - frequent falls at home. - fall precuations, PT/OT assessment and treatment daily. (5) Osteoporosis Current Visit: Yes Status: Acute Base Code: M81.0 - AGE-RELATED OSTEOPOROSIS W/O CURRENT PATHOLOGICAL FRACTURE Comment: 06/30/18: - w/ hx of pathologic, low impact fractures. - on Forteo 20mg qd, Calcium and Vit D. (6) Atrial fibrillation Current Visit: No Status: Acute Base Code: I48.91 - UNSPECIFIED ATRIAL FIBRILLATION Comment: 06/30/18: - in sinus rhythm currently. - rate control on Metoprolol 25mg BID,Eliquis 5mg BID (7) Anticoagulated Current Visit: Yes Status: Acute Base Code: Z79.01 - MENTAL HEALTH COORDINATOR (CURRENT) USE OF ANTICOAGULANTS Comment: 06/30/18: -on Eliquis 5mg BID for chornic a. fib. - risk v. benefit assessment of continued anticoagulation due to falls. - to discuss with PCP on discharge. (8) DVT prophylaxis Current Visit: Yes Status: Acute Base Code: [id number] - (9) Full code status Current Visit: No Status: Acute Base Code: Z78.9 - OTHER SPECIFIED HEALTH STATUS Comment: 06/30/18: - The patient is full code.
[2018-06-29] MEDS: ACETAMINOPHEN 325 MG TAB PO SCH ×2 (16:42→21:39)
--- NOTE | 2018-06-29 16:53 | Rehab Evaluation ---
Patient Information - Patient Information Diagnosis: Deconditioning Ordered Treatment: PT Evaluate and Treat Status: Initial Evaluation Surgery: Yes (ORIF) Date of Surgery: 06/26/18 History: Detail (The patient fell sustaining a L radial/ulnar fracture and was transferred to [facility] swing bed program for rehabilitation.) Past Medical/Surgical Hx: PAST MEDICAL/SURGICAL HISTORY Past Surgical History hyst cats right LHA left hip fracture repair bladder suspension x's 2 heart cath ? stents 15-20 yrs ago PMH - Respiratory Hx Respiratory Disorders No PMH - Cardiovascular Hx Cardiovascular Disorders Yes Hx Heart Attack Yes: 15-20 years ago Hx Hypertension Yes: now hypotensive Hx Hypotension Yes Hx Transient Ischemic Attacks Yes: 10 yrs ago (TIA) Comment: health works every day PMH - Neuro Hx Neurological Disorders Yes Hx Cerebrovascular Accident Yes Hx Seizures No Hx Transient Ischemic Attacks Yes: 10 yrs ago (TIA) Comment: Poor vision d/t stroke PMH - GI Hx Gastrointestinal Disorders No PMH - Hx Genitourinary Disorders No Comment: hysterectomy PMH - Endocrine Hx Endocrine Disorders No PMH - Musculoskeletal Hx Musculoskeletal Disorders Yes Hx Arthritis Yes Comment: pain and cyst right index finger PMH - Psych Hx Psychiatric Problems No PMH - Hematology/Oncology Hx Hematology/Oncology No Disorders Premorbid Status: Detail (The patient prior to fall was ambulatory with standard cane with wide base of support.) Social History: Detail (The patient lives with son in 3 story house with 6 stairs at the enterance with one railing. The patient's bedroom is on the second floor along with the bathroom she uses primarily. The bathroom is equipped with a tub/shower combination and a shower chair with no grab bars and a std. toilet. The house has a flight of 4 stairs, a landing 8 stairs and a landing then 2 to 3 stairs. One handrail is present as follows when acsending left side on the 4 steps, then right side on 8 steps, then L side on final steps. The patient has a standard walker, walker with 4 wheels, hurry cane, LBQC.) Precautions: [place], Fall, Other (NWB on the L UE, sling is present.) - Time With Patient Total Time Spent With Patient (Min): 30 Treatment Procedures: Detail (Initial Evaluation, Gait training with hemicane.) Subjective Information - Subjective Information Per Patient (The patient had no complaints of pain. The patient was up in chair when PT arrived.) Objective Data - Mental Status Patient Orientation: Oriented x3 - Visual Perception Other (The patient is visually impaired.) - ROM Within normal limits (The patient's LE AROM was WNL. Refer to OT evaluation for UE AROM.) - Strength/Tone Within normal limits (The patient's LE strength was 5/5. Refer to OT note for UE strength.) - Bed Mobility Needs Assist (Not tested secondary to patient was up in chair.) - Transfers Needs Assist (Minimal PA with sit to stand from recliner and verbal and tactile cues to touch recliner for stand to sit.) - Balance Balance Sitting: Good Balance Standing: Poor (Balance was not formally tested. Patient was able to stand with support of elizabeth cane.) - Gait Detail (The patient ambulated 10 feet with elizabeth cane with minimal assist to help with cane movement and verbal cues for foot placement.) Therapy Assessment - Therapy Assessment Detail (The patient requires assist with ambulation and transfers. Feel patient will progress well with Rehab.) Problem List - Problem List Physical Therapy Problem List: Detail (1) Assistance with ambulation and transfers 2) Decreased standing balance 3)Visual impairment 3) Decreased ability to complete prolonged physical activity.) Goals - Goals Physical Therapy Goals: 1) The patient will ambulate household distances with appropriate assistive device, independently/supervision. 2) Assess Bed mobility. 3) The patient will be independent with all transfers. 4) The patient will ambulate independently on a flight of stairs with supervision for safety. 5) Assess balance using Objective balance scale. Prognosis - Prognosis Moderate Plan - Plan Physical Therapy Plan: PT 1-2 times a day M-F for gait training, balance exercises and transfer training.
[2018-06-29] MEDS: FORTEO 20 MCG SC SCH (19:43)
[2018-06-29] MEDS: CEPHALEXIN 500 MG CAPSULE PO SCH (21:40)
[2018-06-29] MEDS: APIXABAN 5MG TABLET PO SCH (21:41)
[2018-06-29] MEDS: METOPROLOL TART 25 MG TABLET PO SCH (21:41)
[2018-06-29] MEDS: DONEPEZIL HCL 5 MG TABLET PO SCH (21:41)
[2018-06-29] MEDS: ATORVASTATIN 20 MG TABLET PO SCH (21:41)
[2018-06-30] MEDS: PANTOPRAZOLE SODIUM 40 MG TABLET PO SCH (06:25)
[2018-06-30] MEDS: DESVENLAFAXINE 50 MG PO SCH (09:26)
[2018-06-30] MEDS: APIXABAN 5MG TABLET PO SCH ×2 (09:26→22:14)
[2018-06-30] MEDS: CHOLECALCIFEROL 1,000 UNIT TABLET PO SCH (09:26)
[2018-06-30] MEDS: METOPROLOL TART 25 MG TABLET PO SCH ×2 (09:26→22:14)
[2018-06-30] MEDS: DONEPEZIL HCL 5 MG TABLET PO SCH ×2 (09:26→22:13)
[2018-06-30] MEDS: CALCIUM CARB/VITAMIN D 500MG/200IU PO SCH (09:26)
[2018-06-30] MEDS: MULTIVITAMINS/MINERALS TABLET PO SCH (09:26)
[2018-06-30] MEDS: ACETAMINOPHEN 325 MG TAB PO SCH ×3 (09:27→22:14)
[2018-06-30] MEDS: CEPHALEXIN 500 MG CAPSULE PO SCH ×2 (09:27→22:14)
[2018-06-30] MEDS ORDERED: TRIAMTERENE 37.5/HCTZ 25 CAPSULE PO SCH (10:00)
[2018-06-30] MEDS: FORTEO 20 MCG SC SCH (18:06)
[2018-06-30] MEDS: ATORVASTATIN 20 MG TABLET PO SCH (22:15)
[2018-07-01] MEDS: PANTOPRAZOLE SODIUM 40 MG TABLET PO SCH (06:22)
[2018-07-01] MEDS: CALCIUM CARB/VITAMIN D 500MG/200IU PO SCH (09:20)
[2018-07-01] MEDS: METOPROLOL TART 25 MG TABLET PO SCH ×2 (09:21→22:05)
[2018-07-01] MEDS: CEPHALEXIN 500 MG CAPSULE PO SCH ×2 (09:21→22:04)
[2018-07-01] MEDS: CHOLECALCIFEROL 1,000 UNIT TABLET PO SCH (09:21)
[2018-07-01] MEDS: ACETAMINOPHEN 325 MG TAB PO SCH ×3 (09:21→22:04)
[2018-07-01] MEDS: MULTIVITAMINS/MINERALS TABLET PO SCH (09:21)
[2018-07-01] MEDS: DONEPEZIL HCL 5 MG TABLET PO SCH ×2 (09:21→22:05)
[2018-07-01] MEDS: DESVENLAFAXINE 50 MG PO SCH (09:21)
[2018-07-01] MEDS: APIXABAN 5MG TABLET PO SCH ×2 (09:21→22:05)
--- NOTE | 2018-07-01 10:45 | Swing Bed Certification/Recert ---
Initial Certification Due: 06/29/18 14 Day Re-Cert Due: 07/13/18 44 Day Re-Cert Due: 08/12/18 74 Day Re-Cert Due: 09/11/18 CERTIFICATION 3 CERTIFICATION OF PATIENT ADMISSION Required at time of admission. Due: 06/29/18 I certify that SNF services are required to be given on an inpatient basis because of the above named patient's need for correction care on a continuing basis for the condition(s) for which he/she was receiving inpatient hospital services prior to his/her transfer to the SNF. The patient's current needs for skilled care includes: PT/OT s/p fall and fracture of left radius. GIOVANI CARD 07/01/18
[2018-07-01] MEDS: FORTEO 20 MCG SC SCH (18:05)
[2018-07-01] MEDS: ATORVASTATIN 20 MG TABLET PO SCH (22:05)
[2018-07-02] MEDS: PANTOPRAZOLE SODIUM 40 MG TABLET PO SCH (06:23)
[2018-07-02] MEDS: CALCIUM CARB/VITAMIN D 500MG/200IU PO SCH (09:35)
[2018-07-02] MEDS: APIXABAN 5MG TABLET PO SCH ×2 (09:35→21:37)
[2018-07-02] MEDS: METOPROLOL TART 25 MG TABLET PO SCH ×2 (09:35→21:36)
[2018-07-02] MEDS: DONEPEZIL HCL 5 MG TABLET PO SCH ×2 (09:35→21:36)
[2018-07-02] MEDS: MULTIVITAMINS/MINERALS TABLET PO SCH (09:35)
[2018-07-02] MEDS: CHOLECALCIFEROL 1,000 UNIT TABLET PO SCH (09:35)
[2018-07-02] MEDS: ACETAMINOPHEN 325 MG TAB PO SCH ×3 (09:36→21:37)
[2018-07-02] MEDS: CEPHALEXIN 500 MG CAPSULE PO SCH ×2 (09:36→21:36)
[2018-07-02] MEDS: DESVENLAFAXINE 50 MG PO SCH (09:36)
--- NOTE | 2018-07-02 09:36 | Rehab Evaluation ---
Patient Information - Patient Information Diagnosis: Deconditioning Ordered Treatment: OT Evaluate and Treat Status: Initial Evaluation Surgery: Yes (ORIF left UE) Date of Surgery: 06/26/18 History: Detail (The patient fell sustaining a L radial/ulnar fracture and was transferred to [facility] swing bed program for rehabilitation.) Past Medical/Surgical Hx: PAST MEDICAL/SURGICAL HISTORY Past Surgical History hyst cats right LHA left hip fracture repair bladder suspension x's 2 heart cath ? stents 15-20 yrs ago PMH - Respiratory Hx Respiratory Disorders No PMH - Cardiovascular Hx Cardiovascular Disorders Yes Hx Heart Attack Yes: 15-20 years ago Hx Hypertension Yes: now hypotensive Hx Hypotension Yes Hx Transient Ischemic Attacks Yes: 10 yrs ago (TIA) Comment: health works every day PMH - Neuro Hx Neurological Disorders Yes Hx Cerebrovascular Accident Yes Hx Seizures No Hx Transient Ischemic Attacks Yes: 10 yrs ago (TIA) Comment: Poor vision d/t stroke PMH - GI Hx Gastrointestinal Disorders No PMH - Hx Genitourinary Disorders No Comment: hysterectomy PMH - Endocrine Hx Endocrine Disorders No PMH - Musculoskeletal Hx Musculoskeletal Disorders Yes Hx Arthritis Yes Comment: pain and cyst right index finger PMH - Psych Hx Psychiatric Problems No PMH - Hematology/Oncology Hx Hematology/Oncology No Disorders Premorbid Status: Detail (The patient prior to fall was ambulatory with standard cane with wide base of support. Per chart, son assists pt with self cares due to dementia and declining vision.) Social History: Detail (The patient lives with son in 3 story house with 6 stairs at the entrance with one railing. The patient's bedroom is on the second floor along with the bathroom she uses primarily. The bathroom is equipped with a tub/shower combination and a shower chair with no grab bars and a std. toilet. The house has a flight of 4 stairs, a landing 8 stairs and a landing then 2 to 3 stairs. One handrail is present as follows when acsending left side on the 4 steps, then right side on 8 steps, then L side on final steps. The patient has a standard walker, walker with 4 wheels, hurry cane, LBQC.) Precautions: [place], Fall, Other (NWB on the L UE, sling is present. Impaired vision.) - Time With Patient Total Time Spent With Patient (Min): 40 Treatment Procedures: Detail (OT eval low complexity) Subjective Information - Subjective Information Per Patient Objective Data - Pain Pain Present: No - Mental Status Patient Orientation: Person, Place (Pt oriented to self, location, month and year of birthday. She demonstrates impaired cognition and requires verbal and tactile cueing with self care tasks.) - Visual Perception Deficit (Pt has significant visual impairments and requires verbal and tactile cueing for mobility and self cares.) - ROM Not within normal limits (Right UE AROM WNL, Left UE immobilized from elbow to fingers.) - Strength/Tone Not within normal limits (Right UE strength 4/5, left UE not tested due to immobilization.) - Coordination Deficit (Pt demonstrates impaired coordination in right hand although this may be affected due to impaired vision.) - Bed Mobility Independent (Ind with supine to sit.) - Transfers Needs Assist (CG for sit to stand from EOB, chair and shower seat.) - Balance Balance Sitting: Good Balance Standing: Fair - Sensation Intact - Gait Detail (Pt ambulating in room with straight cane and CG assist. She requires verbal and tactile cues due to impaired vision.) - ADL's/IADL's Detail (Pt able to complete toileting with verbal cues and CG assist due to impaired vision, she was able to doff briefs and slipper socks with verbal cues , gown with mod assist, she was able to complete partial shower in sitting with assist for back and to apply soap to washcloth. She required verbal cueing due to decreased vision and CG assist for standing to wash olvin area. Pt dried self with assist for back and buttocks. Gown, briefs, hospital pants and slipper socks donned with max assist due to decreased vision and mild confusion. Pt able to comb hair Indly.) Therapy Assessment - Therapy Assessment Detail (Pt presents with decreased Ind with self cares and functional mobility. She has no complaints of pain or fatigue with self cares.) Problem List - Problem List Physical Therapy Problem List: Detail (1) Assistance with ambulation and transfers 2) Decreased standing balance 3)Visual impairment 3) Decreased ability to complete prolonged physical activity.) Occupational Therapy Problem List: Detail (1. Decreased Ind with showering. 2. Decreased Ind with dressing. 3. Decreased cognition. 4. Visual impairment) Goals - Goals Physical Therapy Goals: 1) The patient will ambulate household distances with appropriate assistive device, independently/supervision. 2) Assess Bed mobility. 3) The patient will be independent with all transfers. 4) The patient will ambulate independently on a flight of stairs with supervision for safety. 5) Assess balance using Objective balance scale. Occupational Therapy Goals: 1. Pt will be Ind with showering after set up. 2. Pt will be Ind with total body dressing with verbal cues. 3. Pt will be oriented x 3. Prognosis - Prognosis Good Plan - Plan Physical Therapy Plan: PT 1-2 times a day M-F for gait training, balance exercises and transfer training. Occupational Therapy Plan: OT 2-4 times per week to address self cares, cognition and functional mobility.
--- NOTE | 2018-07-02 13:49 | Physical Therapy Tx Note ---
Physical Therapy Tx Note - Treatment Note Tolerated: Good Total Time Spent With Patient: 30 Physical Therapy Tx Note: Detail (The patient was up in chair when PT arrived. The patient ambulated with std cane with cg for safety and verbal cues to inform the patient of obstacles due to visual deficits a distance of 120 feet x 1. The patient's balance was formally tested using the Tinetti Assessment Tool . The patient scored 21/28 which is in the moderate risk for falling category. The patient completed resistive LE muscular endurance exercises including: hip marching, hip abduction, LAQ, hamstring curls and hip adductor squeezes all x 15 -20 reps. The patient also complete R ankle mobility exercises including ankle pumps, inversion/eversion, ankle circles clockwise and counterclockwise all x 10 reps. The patient had no complaints of R ankle pain and decreased endurance.) Physical Therapy Problem List: Detail (1) Assistance with ambulation and transfers 2) Decreased standing balance 3)Visual impairment 3) Decreased ability to complete prolonged physical activity.) Physical Therapy Goals: 1) The patient will ambulate household distances with appropriate assistive device, independently/supervision. 2) Assess Bed mobility. 3) The patient will be independent with all transfers. 4) The patient will ambulate independently on a flight of stairs with supervision for safety. 5) Assess balance using Objective balance scale. Physical Therapy Plan: PT 1-2 times a day M-F for gait training, balance exercises and transfer training.
[2018-07-02] MEDS: FORTEO 20 MCG SC SCH (18:53)
[2018-07-02] MEDS: ATORVASTATIN 20 MG TABLET PO SCH (21:37)
[2018-07-03] MEDS: PANTOPRAZOLE SODIUM 40 MG TABLET PO SCH (06:24)
--- NOTE | 2018-07-03 10:11 | Occupational Therapy Tx Note ---
Occupational Therapy Tx Note - Treatment Note Tolerated: Good Total Time Spent With Patient: 35 (ADL) Occupational Therapy Treatment Note: Detail (S: Pt in bed, ready to get up. Reports sleeping well. O: Supine to sit Indly, amb to toilet with straight cane and CG assist with verbal cues due to low vision. Pt completed toileting with verbal cues. Pt able to doff briefs, PJ bottoms and slipper socks with verbal cues. Pt amb to sink with CG assist and completed washing face and oral hygiene with verbal cueing and min assist to turn on water, apply toothpaste to toothbrush and rinse toothbrush. Pt amb to chair with cane, CG assist and verbal direction. Pt doffed gown with min assist, donned t-shirt with min assist to position shirt and start over left arm due to impaired vision. Pt donned briefs and pants with assist to start over feet due to impaired vision. Donned one slipper sock Ind and required min assist to start second slipper sock. Pt able to comb hair Indly. Pt oriented to place, not oriented to month or year. A: Pt requires min assist for self cares due to impaired vision.) Occupational Therapy Problem List: Detail (1. Decreased Ind with showering. 2. Decreased Ind with dressing. 3. Decreased cognition. 4. Visual impairment) Occupational Therapy Goals: 1. Pt will be Ind with showering after set up. 2. Pt will be Ind with total body dressing with verbal cues. 3. Pt will be oriented x 3. Prognosis: Good Occupational Therapy Plan: OT 2-4 times per week to address self cares, cognition and functional mobility.
[2018-07-03] MEDS: ACETAMINOPHEN 325 MG TAB PO SCH ×3 (10:16→21:51)
[2018-07-03] MEDS: MULTIVITAMINS/MINERALS TABLET PO SCH (10:16)
[2018-07-03] MEDS: CALCIUM CARB/VITAMIN D 500MG/200IU PO SCH (10:17)
[2018-07-03] MEDS: METOPROLOL TART 25 MG TABLET PO SCH ×2 (10:17→21:51)
[2018-07-03] MEDS: APIXABAN 5MG TABLET PO SCH ×2 (10:17→21:51)
[2018-07-03] MEDS: DONEPEZIL HCL 5 MG TABLET PO SCH ×2 (10:17→21:50)
[2018-07-03] MEDS: CEPHALEXIN 500 MG CAPSULE PO SCH ×2 (10:17→21:50)
[2018-07-03] MEDS: CHOLECALCIFEROL 1,000 UNIT TABLET PO SCH (10:17)
[2018-07-03] MEDS: DESVENLAFAXINE 50 MG PO SCH (10:18)
--- NOTE | 2018-07-03 15:18 | Physical Therapy Tx Note ---
Physical Therapy Tx Note - Treatment Note Tolerated: Good Total Time Spent With Patient: 30 Physical Therapy Tx Note: Detail (The patient was seen in room for the following : Balance exercises: standing with varying bases of support and standing on foam surface, seated LE exercises: with green T-band hip abduction, LAQ, hamstring curls, hip marching all x 15 reps, ankle pumps and circles and hip adductior squeezes x 15 reps. The patient ambulated with standard cane a distance of 300 feet x 1 with CG/supervision and verbal cues due to visual deficits.) Physical Therapy Problem List: Detail (1) Assistance with ambulation and transfers 2) Decreased standing balance 3)Visual impairment 3) Decreased ability to complete prolonged physical activity.) Physical Therapy Goals: 1) The patient will ambulate household distances with appropriate assistive device, independently/supervision. 2) Assess Bed mobility. 3) The patient will be independent with all transfers. 4) The patient will ambulate independently on a flight of stairs with supervision for safety. 5) Assess balance using Objective balance scale. Physical Therapy Plan: PT 1-2 times a day M-F for gait training, balance exercises and transfer training.
[2018-07-03] MEDS: ATORVASTATIN 20 MG TABLET PO SCH (21:51)
[2018-07-03] MEDS: FORTEO 20 MCG SC SCH (21:52)
[2018-07-04] MEDS: PANTOPRAZOLE SODIUM 40 MG TABLET PO SCH (06:27)
[2018-07-04] MEDS: ACETAMINOPHEN 325 MG TAB PO SCH ×3 (10:54→21:33)
[2018-07-04] MEDS: CHOLECALCIFEROL 1,000 UNIT TABLET PO SCH (10:54)
[2018-07-04] MEDS: METOPROLOL TART 25 MG TABLET PO SCH ×2 (10:54→21:37)
[2018-07-04] MEDS: CALCIUM CARB/VITAMIN D 500MG/200IU PO SCH (10:55)
[2018-07-04] MEDS: CEPHALEXIN 500 MG CAPSULE PO SCH ×2 (10:55→21:35)
[2018-07-04] MEDS: MULTIVITAMINS/MINERALS TABLET PO SCH (10:55)
[2018-07-04] MEDS: DONEPEZIL HCL 5 MG TABLET PO SCH ×2 (10:55→21:34)
[2018-07-04] MEDS: APIXABAN 5MG TABLET PO SCH ×2 (10:55→21:35)
[2018-07-04] MEDS: DESVENLAFAXINE 50 MG PO SCH (10:56)
--- NOTE | 2018-07-04 11:51 | Physical Therapy Tx Note ---
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 Patient states doing good today. Patient transferred sit to and from stand CGA x1. Patient ambulated 130 feet with single point cane CGA x1. Patient transferred sit to and from stand CGA x1. Patient performed the following balance exercises x30 seconds each: feet together, feet together with looking up and down, feet together with looking side to side, feet together with pertubations, feet together with eyes closed, and stride stance. Patient transferred sit to and from stand CGA x1. Patient performed the following standing exercises x10 reps each: marching, hip abduction, hip extension, and hamstring curls. Patient tolerated treatment well. Patient displays decreased balance with feet together with eyes closed, and stride stance. Patient reports feeling good after treatment. Patient was left seated in chair with call light within reach.) Physical Therapy Problem List: Detail (1) Assistance with ambulation and transfers 2) Decreased standing balance 3)Visual impairment 3) Decreased ability to complete prolonged physical activity.) Physical Therapy Goals: 1) The patient will ambulate household distances with appropriate assistive device, independently/supervision. 2) Assess Bed mobility. 3) The patient will be independent with all transfers. 4) The patient will ambulate independently on a flight of stairs with supervision for safety. 5) Assess balance using Objective balance scale. Prognosis: Good Physical Therapy Plan: PT 1-2 times a day M-F for gait training, balance exercises and transfer training.
--- NOTE | 2018-07-04 16:49 | Physical Therapy Tx Note ---
Physical Therapy Tx Note - Treatment Note Tolerated: Good Total Time Spent With Patient: 30 Physical Therapy Tx Note: Detail (The patient was up in chair when PT arrived. The patient ambulated with her std cane with wide base of support 269 feet x 1 with CG of 1 plus verbal cues for directions due to visual deficits. The patient ambulated up 13 stairs with CG of 2 for safety and one handrail, using a reciprocal pattern for 7 stairs and step to pattern for the remainder. The patient rested, then descended stairs with railing and CG of 2. The patient then ambulated 50 feet to her room with CG of 1. The patient tolerated treatment well. The patient requires CG on stairs for safety.) Physical Therapy Problem List: Detail (1) Assistance with ambulation and transfers 2) Decreased standing balance 3)Visual impairment 3) Decreased ability to complete prolonged physical activity.) Physical Therapy Goals: 1) The patient will ambulate household distances with appropriate assistive device, independently/supervision. 2) Assess Bed mobility. 3) The patient will be independent with all transfers. 4) The patient will ambulate independently on a flight of stairs with supervision for safety. 5) Assess balance using Objective balance scale. Physical Therapy Plan: PT 1-2 times a day M-F for gait training, balance exercises and transfer training.
[2018-07-04] MEDS: FORTEO 20 MCG SC SCH (17:10)
[2018-07-04] MEDS: ATORVASTATIN 20 MG TABLET PO SCH (21:35)
[2018-07-05] MEDS: PANTOPRAZOLE SODIUM 40 MG TABLET PO SCH (06:31)
[2018-07-05] MEDS: DONEPEZIL HCL 5 MG TABLET PO SCH ×2 (09:46→21:57)
[2018-07-05] MEDS: CEPHALEXIN 500 MG CAPSULE PO SCH ×2 (09:46→21:57)
[2018-07-05] MEDS: CHOLECALCIFEROL 1,000 UNIT TABLET PO SCH (09:46)
[2018-07-05] MEDS: MULTIVITAMINS/MINERALS TABLET PO SCH (09:46)
[2018-07-05] MEDS: METOPROLOL TART 25 MG TABLET PO SCH ×2 (09:46→21:57)
[2018-07-05] MEDS: DESVENLAFAXINE 50 MG PO SCH (09:47)
[2018-07-05] MEDS: APIXABAN 5MG TABLET PO SCH ×2 (09:47→21:56)
[2018-07-05] MEDS: CALCIUM CARB/VITAMIN D 500MG/200IU PO SCH (09:47)
[2018-07-05] MEDS: ACETAMINOPHEN 325 MG TAB PO SCH ×3 (09:47→21:57)
--- NOTE | 2018-07-05 14:43 | Physical Therapy Tx Note ---
Physical Therapy Tx Note - Treatment Note Tolerated: Good Total Time Spent With Patient: 30 Physical Therapy Tx Note: Detail (Patient states doing good this morning. Patient transferred sit to and from stand CGA x1. Patient ambulated 330 feet with Hurry cane CGA x1. Patient transferred sit to and from stand CGA x1. Patient performed the following balance exercises x30 seconds each: foam DLS, foam weight shift A/P and lateral, feet together looking side to side on floor, feet together looking up and down on floor, DLS with eyes closed on floor, and stride stance on floor. Patient tolerated treatment well. Patient required cuing and assistance with hand placement with transfers and ambulation due to visual impairments. Patient displays decreased balance with DLS on foam, weight shifts on foam, DLS with eyes closed, and stride stance. Patient reports feeling "wobbly" after exercises. Patient was left seated in chair with call light within reach.) Physical Therapy Problem List: Detail (1) Assistance with ambulation and transfers 2) Decreased standing balance 3)Visual impairment 3) Decreased ability to complete prolonged physical activity.) Physical Therapy Goals: 1) The patient will ambulate household distances with appropriate assistive device, independently/supervision. 2) Assess Bed mobility. 3) The patient will be independent with all transfers. 4) The patient will ambulate independently on a flight of stairs with supervision for safety. 5) Assess balance using Objective balance scale. Prognosis: Good Physical Therapy Plan: PT 1-2 times a day M-F for gait training, balance exercises and transfer training.
--- NOTE | 2018-07-05 14:47 | Physical Therapy Tx Note ---
Physical Therapy Tx Note - Treatment Note Tolerated: Good Total Time Spent With Patient: 40 Physical Therapy Tx Note: Detail (Pt was seated in bed side chair at start of session. Pt reports that she has no pain, and is excited to go for a walk. Pt performed sit<>stand transfer with SBA for safety, and verbal/tactile cues for hand placement and body positioning prior to sitting. Pt amb 700' using cane and CGA for balance and safety. During walk, pt amb 10' while marching, 10' backwards, 10' side stepping to L and 10' side stepping to R. Pt amb with decreased B step length, increased B hip flexion, decreased speed, and drift to the L. Pt required verbal and tactile cues for object avoidance d/t impaired vision. Pt performed standing balance activities without AD including tandem stance with eyes closed, narrow ALPHONSE with head nods and eyes closed, SLS, and one foot on 6" step. Pt demonstrated increased postural sway when balancing on LLE, and required min/mod A for steadying throughout all balance activities. Pt performed B toe taps without UE support and mod A for steadying and safety, and demonstrated decreased weight shift over LLE. Pt left seated in bedside chair with needs met, call light within reach, and close call alarm activated.) Physical Therapy Problem List: Detail (1) Assistance with ambulation and transfers 2) Decreased standing balance 3)Visual impairment 3) Decreased ability to complete prolonged physical activity.) Physical Therapy Goals: 1) The patient will ambulate household distances with appropriate assistive device, independently/supervision. 2) Assess Bed mobility. 3) The patient will be independent with all transfers. 4) The patient will ambulate independently on a flight of stairs with supervision for safety. 5) Assess balance using Objective balance scale. Prognosis: Good Physical Therapy Plan: PT 1-2 times a day M-F for gait training, balance exercises and transfer training.
[2018-07-05] MEDS: FORTEO 20 MCG SC SCH (19:02)
[2018-07-05] MEDS ORDERED: ZINC OXIDE 28.35 GM TUBE TOP PRN (20:18)
[2018-07-05] MEDS: ATORVASTATIN 20 MG TABLET PO SCH (21:56)
[2018-07-06] MEDS: PANTOPRAZOLE SODIUM 40 MG TABLET PO SCH (06:51)
[2018-07-06] MEDS: DONEPEZIL HCL 5 MG TABLET PO SCH ×2 (09:19→21:58)
[2018-07-06] MEDS: METOPROLOL TART 25 MG TABLET PO SCH ×2 (09:19→21:58)
[2018-07-06] MEDS: APIXABAN 5MG TABLET PO SCH ×2 (09:19→21:58)
--- NOTE | 2018-07-06 10:15 | Physical Therapy Tx Note ---
Physical Therapy Tx Note - Treatment Note Tolerated: Good Total Time Spent With Patient: 30 Physical Therapy Tx Note: Detail (The patient was with MA in bathroom, dressing and cleaning up when PT arrive. The patient was ambulated with her cane with supervision for safety only a distance of 230 feet x1, 50 feet x1 with verbal cues for directions due visual deficits. The patient was taken to Rehab department and completed the Nu step x 5 min. The patient completed the following balance exercises: standing with varying bases of support sith perturbations, standing on foam surface and walking sideways and backwards. The patient exhibited increased steadiness with all balance exercises. The patient will not be seen this afternoon due to conflicting appointment.) Physical Therapy Problem List: Detail (1) Assistance with ambulation and transfers 2) Decreased standing balance 3)Visual impairment 3) Decreased ability to complete prolonged physical activity.) Physical Therapy Goals: 1) The patient will ambulate household distances with appropriate assistive device, independently/supervision (Goal Met). 2) Assess Bed mobility( Goal Met). 3) The patient will be independent with all transfers. 4) The patient will ambulate independently on a flight of stairs with supervision for safety. 5) Assess balance using Objective balance scale. Physical Therapy Plan: PT 1-2 times a day M-F for gait training, balance exercises and transfer training.
[2018-07-06] MEDS: CALCIUM CARB/VITAMIN D 500MG/200IU PO SCH (10:16)
[2018-07-06] MEDS: CHOLECALCIFEROL 1,000 UNIT TABLET PO SCH (10:17)
[2018-07-06] MEDS: DESVENLAFAXINE 50 MG PO SCH (10:17)
[2018-07-06] MEDS: MULTIVITAMINS/MINERALS TABLET PO SCH (10:17)
[2018-07-06] MEDS: ACETAMINOPHEN 325 MG TAB PO SCH ×3 (10:18→21:59)
--- NOTE | 2018-07-06 16:07 | Physical Therapy Tx Note ---
Physical Therapy Tx Note - Treatment Note Tolerated: Good Total Time Spent With Patient: 15 Physical Therapy Tx Note: Detail (The patient had just returned from [facility] appt. and was anxious to walk. The patient ambulated with wide base standard cane a distance of 325 feet with supervision and verbal cues. The patient was fatigued when she returned to room. Patient was left in chair with chair alarm in place and bedside table and call light in reach. The patient's gait pattern continues to improve with decreased unsteadiness noted.) Physical Therapy Problem List: Detail (1) Assistance with ambulation and transfers 2) Decreased standing balance 3)Visual impairment 3) Decreased ability to complete prolonged physical activity.) Physical Therapy Goals: 1) The patient will ambulate household distances with appropriate assistive device, independently/supervision (Goal Met). 2) Assess Bed mobility( Goal Met). 3) The patient will be independent with all transfers. 4) The patient will ambulate independently on a flight of stairs with supervision for safety. 5) Assess balance using Objective balance scale. Physical Therapy Plan: PT 1-2 times a day M-F for gait training, balance exercises and transfer training.
[2018-07-06] MEDS: FORTEO 20 MCG SC SCH (18:40)
[2018-07-06] MEDS: ATORVASTATIN 20 MG TABLET PO SCH (21:57)
[2018-07-07] MEDS: PANTOPRAZOLE SODIUM 40 MG TABLET PO SCH (06:38)
--- NOTE | 2018-07-07 09:59 | Physician Progress Note ---
Subjective - Date Date of Progress Note: 07/07/18 - Admitting Diagnosis Diagnosis: Deconditioning due to radial fracture - Subjective Events since last encounter: Pt. is doing very well, she has progressed well with PT/OT, she continues to deny pain from her left distal radius fracture. Planning to discharge on 07/10. Nursing Care Plan Problem List Activity Intolerance (Swing Bed) Start: 06/29/18 15: 16 Freq: Status: Active Protocol: Created 06/29/18 15:16 SM (Rec: 06/29/18 15:16 [facility] [id number]) Altered Thought Process (Fall Risk) Start: 06/29/18 15: 31 Freq: Status: Active Protocol: Created 06/29/18 15:31 SM (Rec: 06/29/18 15:31 [facility] [id number]) Impaired Mobility (Fall Risk) Start: 06/29/18 15: 31 Freq: Status: Active Protocol: Created 06/29/18 15:31 SM (Rec: 06/29/18 15:31 [facility] [id number]) Knowledge Deficit (Swing Bed) Start: 06/29/18 15: 16 Freq: Status: Active Protocol: Created 06/29/18 15:16 [facility] (Rec: 06/29/18 15:16 [facility] [id number]) Pain (Swing Bed) Start: 06/29/18 15: 16 Freq: Status: Active Protocol: Created 06/29/18 15:16 [facility] (Rec: 06/29/18 15:16 [facility] [id number]) Risk for Injury (Fall Risk) Start: 06/29/18 15: 31 Freq: Status: Active Protocol: Created 06/29/18 15:31 [facility] (Rec: 06/29/18 15:31 [facility] [id number]) General - Cognitive Patterns Speech: Normal Thought Process: Intact Thought Content: Normal - Communication Select best description of speech pattern: Unclear Speech Ability to express ideas and wants: Understood Understanding verbal content: Usually Understands - Mood and Behavior Patterns Appearance: Disheveled Mood: Normal Attitude: Cooperative Motor Activity: Calm Affect: Appropriate Hallucinations: Denies - Physical Functioning Activity Level: Up with assist x1 Turning: With partial assist ROM Ability: Moves all extremities, Limited/Compromised Assistive Devices: Straight Cane, Quad Cane Ambulation Ability: Needs Assist Bed Mobility: Independent Transfer Ability: Needs Assist Bathing Ability: Needs Assist Personal Hygiene: Needs Assist Dressing Ability: Needs Assist Eating (Feeding) Ability: Needs Assist Toileting Ability: Needs Assist Administer Own Medication: Needs Assist Care Ability Comment: Pt is legally blind. [ End ] - Continence Bowel Pattern: Normal for Patient Bladder Pattern: Urgency, Incontinent Urinary Incontinence: Urge Meds/Allergies - Allergies Allergies Allergy/AdvReac Type Severity Reaction Status Date / Time meperidine HCl [From Demerol] Allergy Severe SWELLING Verified 06/25/18 19:39 (GENERAL) - Active Medications Current Medications Acetaminophen (Tylenol 325mg) 650 mg PO TID [facility] Last Admin: 07/06/18 21:59 Dose: 650 mg Apixaban (Eliquis) 5 mg PO BID [facility] Last Admin: 07/06/18 21:58 Dose: 5 mg Atorvastatin Calcium (Lipitor) 80 mg PO QHS [facility] Last Admin: 07/06/18 21:57 Dose: 80 mg Calcium/Vitamin D (Calcium 500+D Tablet) 1 tab PO DAILY [facility] Last Admin: 07/06/18 10:16 Dose: 1 tab Donepezil HCl (Aricept) 5 mg PO BID [facility] Last Admin: 07/06/18 21:58 Dose: 5 mg Metoprolol Tartrate (Lopressor) 25 mg PO BID [facility] Last Admin: 07/06/18 21:58 Dose: 25 mg Multivitamins/Minerals (Centrum) 1 tab PO DAILY [facility] Last Admin: 07/06/18 10:17 Dose: 1 tab Pantoprazole Sodium (Protonix) 40 mg PO DAILYAC [facility] Last Admin: 07/07/18 06:38 Dose: 40 mg Patient Own Med: (Desvenalfaxine 50 Mg) 1 each PO DAILY [facility] Last Admin: 07/06/18 10:17 Dose: 1 each Patient Own Med: Forteo 20 Mcg Injection 1 each SC 1800 [facility] Last Admin: 07/06/18 18:40 Dose: 1 each Vitamin D (Vitamin D3) 1,000 unit PO DAILY [facility] Last Admin: 07/06/18 10:17 Dose: 1,000 unit Zinc Oxide (Desitin) 10 gm TOP BID PRN PRN Reason: RASH Last Admin: 07/06/18 21:57 Dose: 10 gm Objective - Vital Signs Vital Signs: Vital Signs - Last 24 Hrs Temp Pulse Resp BP BP Pulse Ox 07/07/18 08:00 97.6 F 99 H 18 157/77 97 07/06/18 20:00 97.8 F 70 18 133/80 96 07/06/18 14:54 98 F 148/72 - General General Appearance: Alert, Oriented x3 Limitations: No limitations - Head Head exam: Normal inspection - Eye Eye exam: Normal appearance, PERRL - Respiratory Respiratory exam: Normal lung sounds bilaterally. negative: Respiratory distress - Cardiovascular Peripheral Pulses: 2+: Radial (R), Radial (L), Dorsalis Pedis (R), Dorsalis Pedis (L) - GI/Abdominal GI/Abdominal exam: Soft, Normal bowel sounds. negative: Tenderness - Extremities Extremities exam: Pedal edema (right +2) - Neurological Neurological exam: Oriented X3 - Psychiatric Psychiatric exam: Normal affect, Normal mood - Skin Skin exam: Erythema (right foot/ankle) Discharge Potential - Discharge Needs Community Services Used Prior to Admission: None Patient Discharge Plan Description: Return Home Community Services Needed at Discharge: Physical Therapy Plan - Swing Bed Certification Initial Certification Due: 06/29/18 14 Day Re-Cert Due: 07/13/18 44 Day Re-Cert Due: 08/12/18 74 Day Re-Cert Due: 09/11/18 - Detailed Diagnosis and Plan (1) Weakness Current Visit: No Status: Acute Base Code: R53.1 - WEAKNESS Comment: 07/07: -Deconditioning secondary to fall/right radial fracture -PT/OT M-F, pt. is progressing very well -Will plan to continue home PT -Tentative discharge date of 07/10 (2) Distal radial fracture Current Visit: Yes Status: Acute Base Code: S52.509A - UNSP FRACTURE OF THE LOWER END OF UNSP RADIUS, INIT Comment: 07/07/18: - s/p ORIF 06/26 at [facility] [place] - post-op splint and sling in place. - no pain at this time but can do PRN Tylenol if needed. - F/U with Orthopedic surgery Dr. Leos in 1 week. (3) Visual impairment Current Visit: Yes Status: Acute Base Code: H54.7 - UNSPECIFIED VISUAL LOSS Comment: 07/07/18: - pt visually impaired which contributes to her frequent falls. - home environmental modification needed. (4) Anticoagulated Current Visit: Yes Status: Acute Base Code: Z79.01 - FIELD SUPPORT TECHNICIAN (CURRENT) USE OF ANTICOAGULANTS Comment: 07/07/18: -on Eliquis 5mg BID for chornic a. fib. - risk v. benefit assessment of continued anticoagulation due to falls. - to discuss with PCP on discharge. (5) Cellulitis of right ankle Current Visit: Yes Status: Acute Base Code: L03.115 - CELLULITIS OF RIGHT LOWER LIMB Comment: 07/07/18: - redness, +2 edema of the right foot/ankle. Mild infection. - elevate leg for edema and re-assess for worsening of skin infection. - finished 7-day course of keflex (6) Falls frequently Current Visit: Yes Status: Acute Base Code: R29.6 - REPEATED FALLS Comment : 07/07/18: - frequent falls at home. - fall precuations, PT/OT assessment and treatment daily. - Planning for home PT to assess home for fall hazards (7) Osteoporosis Current Visit: Yes Status: Acute Base Code: M81.0 - AGE-RELATED OSTEOPOROSIS W/O CURRENT PATHOLOGICAL FRACTURE Comment: 07/07/18: - w/ hx of pathologic, low impact fractures. - on Forteo 20mg qd, Calcium and Vit D. (8) Atrial fibrillation Current Visit: No Status: Acute Base Code: I48.91 - UNSPECIFIED ATRIAL FIBRILLATION Comment: 07/07/18: - in sinus rhythm currently. - rate control on Metoprolol 25mg BID,Eliquis 5mg BID (9) DVT prophylaxis Current Visit: No Status: Acute Base Code: [id number] - Comment: 07/07/18: -Continue home dosage of Eliquis 5mg BID for chronic a fib (10) Full code status Current Visit: No Status: Acute Base Code: Z78.9 - OTHER SPECIFIED HEALTH STATUS Comment: 07/07/18: - The patient is full code.
[2018-07-07] MEDS: ACETAMINOPHEN 325 MG TAB PO SCH ×3 (10:00→22:16)
[2018-07-07] MEDS: CALCIUM CARB/VITAMIN D 500MG/200IU PO SCH (10:01)
[2018-07-07] MEDS: CHOLECALCIFEROL 1,000 UNIT TABLET PO SCH (10:01)
[2018-07-07] MEDS: MULTIVITAMINS/MINERALS TABLET PO SCH (10:01)
[2018-07-07] MEDS: DONEPEZIL HCL 5 MG TABLET PO SCH ×2 (10:01→22:15)
[2018-07-07] MEDS: APIXABAN 5MG TABLET PO SCH ×2 (10:01→22:15)
[2018-07-07] MEDS: METOPROLOL TART 25 MG TABLET PO SCH ×2 (10:01→22:16)
[2018-07-07] MEDS: DESVENLAFAXINE 50 MG PO SCH (10:07)
[2018-07-07] MEDS: FORTEO 20 MCG SC SCH (18:00)
[2018-07-07] MEDS: ATORVASTATIN 20 MG TABLET PO SCH (22:15)
[2018-07-08] MEDS: PANTOPRAZOLE SODIUM 40 MG TABLET PO SCH (07:09)
[2018-07-08] MEDS: ACETAMINOPHEN 325 MG TAB PO SCH ×3 (10:44→22:13)
[2018-07-08] MEDS: METOPROLOL TART 25 MG TABLET PO SCH ×2 (10:44→22:14)
[2018-07-08] MEDS: MULTIVITAMINS/MINERALS TABLET PO SCH (10:44)
[2018-07-08] MEDS: APIXABAN 5MG TABLET PO SCH ×2 (10:44→22:14)
[2018-07-08] MEDS: CHOLECALCIFEROL 1,000 UNIT TABLET PO SCH (10:44)
[2018-07-08] MEDS: DONEPEZIL HCL 5 MG TABLET PO SCH ×2 (10:44→22:14)
[2018-07-08] MEDS: CALCIUM CARB/VITAMIN D 500MG/200IU PO SCH (10:44)
[2018-07-08] MEDS: DESVENLAFAXINE 50 MG PO SCH (10:45)
[2018-07-08] MEDS: FORTEO 20 MCG SC SCH (17:16)
[2018-07-08] MEDS: ATORVASTATIN 20 MG TABLET PO SCH (22:13)
[2018-07-09] MEDS: PANTOPRAZOLE SODIUM 40 MG TABLET PO SCH (06:49)
[2018-07-09] MEDS: CHOLECALCIFEROL 1,000 UNIT TABLET PO SCH (10:09)
[2018-07-09] MEDS: DONEPEZIL HCL 5 MG TABLET PO SCH ×2 (10:09→22:37)
[2018-07-09] MEDS: METOPROLOL TART 25 MG TABLET PO SCH ×2 (10:09→22:37)
[2018-07-09] MEDS: APIXABAN 5MG TABLET PO SCH ×2 (10:09→22:38)
[2018-07-09] MEDS: CALCIUM CARB/VITAMIN D 500MG/200IU PO SCH (10:09)
[2018-07-09] MEDS: MULTIVITAMINS/MINERALS TABLET PO SCH (10:09)
[2018-07-09] MEDS: ACETAMINOPHEN 325 MG TAB PO SCH ×3 (10:09→22:38)
[2018-07-09] MEDS: DESVENLAFAXINE 50 MG PO SCH (10:11)
--- NOTE | 2018-07-09 12:45 | Occupational Therapy Tx Note ---
Occupational Therapy Tx Note - Treatment Note Tolerated: Good Total Time Spent With Patient: 35 (ADL) Occupational Therapy Treatment Note: Detail (S: Pt resting in bed. O: Supine to sit Indly with hospital bedrails. Sit to stand and amb to toilet with 3 point cane, verbal cues and CG. Pt completed toileting with verbal cues including pulling briefs down and up. Pt amb to chair with CG assist and cane. Doffed sling with mod assist and gown with assist to untie. Pt requires verbal cues and min assist to don shirt and pants due to poor vision. Pt able to use left UE as an assist without difficulty. Pt amb to sink and completed oral hygiene with assist to set up toothbrush and verbal cues due to poor vision. Pt able to comb hair Indly. Pt amb back to chair with verbal cues and CG assist. Pt oriented to self and place, not to month or year. A: Pt requires min assist for dressing, grooming/hygiene tasks. Pt oriented to self.) Occupational Therapy Problem List: Detail (1. Decreased Ind with showering. 2. Decreased Ind with dressing. 3. Decreased cognition. 4. Visual impairment) Occupational Therapy Goals: 1. Pt will be Ind with showering after set up. 2. Pt will be Ind with total body dressing with verbal cues. 3. Pt will be oriented x 3. Prognosis: Good Occupational Therapy Plan: OT 2-4 times per week to address self cares, cognition and functional mobility.
--- NOTE | 2018-07-09 13:56 | Rehab Discharge Summary ---
Patient Information - Patient Information Diagnosis: Deconditioning Ordered Treatment: PT Evaluate and Treat Surgery: Yes (ORIF left UE) Date of Surgery: 06/26/18 History: Detail (The patient fell sustaining a L radial/ulnar fracture and was transferred to [facility] swing bed program for rehabilitation.) Past Medical/Surgical Hx: PAST MEDICAL/SURGICAL HISTORY Past Surgical History hyst cats right LHA left hip fracture repair bladder suspension x's 2 heart cath ? stents 15-20 yrs ago PMH - Respiratory Hx Respiratory Disorders No PMH - Cardiovascular Hx Cardiovascular Disorders Yes Hx Heart Attack Yes: 15-20 years ago Hx Hypertension Yes: now hypotensive Hx Hypotension Yes Hx Transient Ischemic Attacks Yes: 10 yrs ago (TIA) Comment: health works every day PMH - Neuro Hx Neurological Disorders Yes Hx Cerebrovascular Accident Yes Hx Seizures No Hx Transient Ischemic Attacks Yes: 10 yrs ago (TIA) Comment: Poor vision d/t stroke PMH - GI Hx Gastrointestinal Disorders No PMH - Hx Genitourinary Disorders No Comment: hysterectomy PMH - Endocrine Hx Endocrine Disorders No PMH - Musculoskeletal Hx Musculoskeletal Disorders Yes Hx Arthritis Yes Comment: pain and cyst right index finger PMH - Psych Hx Psychiatric Problems No PMH - Hematology/Oncology Hx Hematology/Oncology No Disorders Premorbid Status: Detail (The patient prior to fall was ambulatory with standard cane with wide base of support. Per chart, son assists pt with self cares due to dementia and declining vision.) Social History: Detail (The patient lives with son in 3 story house with 6 stairs at the entrance with one railing. The patient's bedroom is on the second floor along with the bathroom she uses primarily. The bathroom is equipped with a tub/shower combination and a shower chair with no grab bars and a std. toilet. The house has a flight of 4 stairs, a landing 8 stairs and a landing then 2 to 3 stairs. One handrail is present as follows when acsending left side on the 4 steps, then right side on 8 steps, then L side on final steps. The patient has a standard walker, walker with 4 wheels, hurry cane, LBQC.) Precautions: Mills, Fall, Other (NWB on the L UE, sling is present. Impaired vision.) - Time With Patient Total Time Spent With Patient (Min): 35 Treatment Procedures: Detail (Therapeutic exercise, balance retesting) Subjective Information - Subjective Information Per Patient (The patient had no complaints.) Objective Data - Mental Status Patient Orientation: Oriented x3 (confusion noted at times especially with short term memory) - Visual Perception Deficit - ROM Within normal limits - Strength/Tone Within normal limits (LE strength is generally 5/5.) - Bed Mobility Independent - Transfers Independent (The patient is independent with transfers but supervision for safety is recommended.) - Balance Balance Sitting: Good Balance Standing: Fair (The patient's balance using the Tinetti Assessment Tool is 22/28 which is in the moderate risk for falls category. One point improvement is noted since initial evaluation.) - Gait Detail (The patient ambulates with [employer] standard cane a distance of 500 feet x1 with supervision for safety due to visual deficits plus verbal cues for directions. The patient is able to recognize when obstacles are present. The patient ambulated on a flight of stairs with use of railing with CG of supervision of 1 for safety.) Therapy Assessment - Therapy Assessment Detail (The patient was independent with mobility and ambulation, however 24 hour supervision for safety is recommended due to visual status and cognitive status. Home PT is also recommended for assessment of safety in home environment with mobility especially stairs.) Patient Education - Patient Education Teaching Topic: Exercise/Activity (The patient was independent with cueing for HEP of LE strengthening/endurance exercises with use of resistance band.) Response: Return Demonstration Teaching Method: Demonstration, Handout Teaching Recipient: Patient Barriers To Learning: Age Related Problem List - Problem List Physical Therapy Problem List: Detail (1) Assistance with ambulation and transfers 2) Decreased standing balance 3)Visual impairment 3) Decreased ability to complete prolonged physical activity.) Occupational Therapy Problem List: Detail (1. Decreased Ind with showering. 2. Decreased Ind with dressing. 3. Decreased cognition. 4. Visual impairment) Goals - Goals Physical Therapy Goals: 1) The patient will ambulate household distances with appropriate assistive device, independently/supervision (Goal Met). 2) Assess Bed mobility( Goal Met). 3) The patient will be independent with all transfers (Partially met-supervison due to visual and cognitive deficits). 4) The patient will ambulate independently on a flight of stairs with supervision for safety. ( Partially met due to visual and cognitive deficits). 5) Assess balance using Objective balance scale. Occupational Therapy Goals: 1. Pt will be Ind with showering after set up. 2. Pt will be Ind with total body dressing with verbal cues. 3. Pt will be oriented x 3. Prognosis - Prognosis Good Plan - Plan Physical Therapy Plan: Patient to discharge tomorrow to home. Home PT is recommended. Occupational Therapy Plan: OT 2-4 times per week to address self cares, cognition and functional mobility.
[2018-07-09] MEDS: FORTEO 20 MCG SC SCH (17:12)
[2018-07-09] MEDS: ATORVASTATIN 20 MG TABLET PO SCH (22:37)
--- NOTE | 2018-07-10 05:20 | Discharge Summary ---
Providers Discharge Summary Date: 07/10/18 Date of admission: 06/29/18 14:59 Expected Date of Discharge: 07/10/18 Attending physician: GIOVANI CARD Primary care physician: MIKE FUNEZ M.D. Physical Exam - Vital Signs Vital Signs: Vital Signs - Last 24 Hrs Temp Pulse Resp BP Pulse Ox 07/09/18 20:00 97.7 F 83 20 143/71 96 07/09/18 08:00 97.7 F 84 18 144/71 98 - General General Appearance: Alert, Oriented x3 Limitations: No limitations - Head Head exam: Normal inspection - Eye Eye exam: Normal appearance, PERRL - Respiratory Respiratory exam: Normal lung sounds bilaterally. negative: Respiratory distress - Cardiovascular Peripheral Pulses: 2+: Radial (R), Radial (L), Dorsalis Pedis (R), Dorsalis Pedis (L) - GI/Abdominal GI/Abdominal exam: Soft, Normal bowel sounds. negative: Tenderness - Extremities Extremities exam: Pedal edema (right +2) - Neurological Neurological exam: Oriented X3 - Psychiatric Psychiatric exam: Normal affect, Normal mood - Skin Skin exam: Erythema (right foot/ankle) - Other Other Exam Information: Sling in place- left forearm Hospitalization - Hospitalization Admission Diagnosis: Deconditioning due to radial fracture - Problem List/Discharge Diagnosis (1) Weakness Current Visit: No Status: Acute Base Code: R53.1 - WEAKNESS Comment: 07/10: -Deconditioning secondary to fall/right radial fracture -Pt. progressed very well with PT/OT -Will plan to continue home PT- including eval for home safety (2) Distal radial fracture Current Visit: Yes Status: Acute Base Code: S52.509A - UNSP FRACTURE OF THE LOWER END OF UNSP RADIUS, INIT Comment: 07/10/18: - s/p ORIF 06/26 at [facility] [place] - post-op splint and sling in place. - no pain at this time but can do PRN Tylenol if needed. - F/U with Orthopedic surgery Dr. Leos this week. (3) Visual impairment Current Visit: Yes Status: Acute Base Code: H54.7 - UNSPECIFIED VISUAL LOSS Comment: 07/10/18: - pt visually impaired which contributes to her frequent falls. - home environmental modification needed. (4) Anticoagulated Current Visit: Yes Status: Acute Base Code: Z79.01 - PENITENTIARY (CURRENT) USE OF ANTICOAGULANTS Comment: 07/10/18: -on Eliquis 5mg BID for chornic a. fib. - risk v. benefit assessment of continued anticoagulation due to falls. - to discuss with PCP after discharge. (5) Cellulitis of right ankle Current Visit: Yes Status: Acute Base Code: L03.115 - CELLULITIS OF RIGHT LOWER LIMB Comment: 07/10/18: - redness, +2 edema of the right foot/ankle. Mild infection. - elevate leg for edema and re-assess for worsening of skin infection. - finished 7-day course of keflex (6) Falls frequently Current Visit: Yes Status: Acute Base Code: R29.6 - REPEATED FALLS Comment : 07/10/18: - frequent falls at home. - fall precuations, PT/OT assessment and treatment daily. - Planning for home PT to assess home for fall hazards (7) Osteoporosis Current Visit: Yes Status: Acute Base Code: M81.0 - AGE-RELATED OSTEOPOROSIS W/O CURRENT PATHOLOGICAL FRACTURE Comment: 07/10/18: - w/ hx of pathologic, low impact fractures. - on Forteo 20mg qd, Calcium and Vit D. (8) Atrial fibrillation Current Visit: No Status: Acute Base Code: I48.91 - UNSPECIFIED ATRIAL FIBRILLATION Comment: 07/10/18: - in sinus rhythm currently. - rate control on Metoprolol 25mg BID,Eliquis 5mg BID (9) DVT prophylaxis Current Visit: No Status: Acute Base Code: [id number] - Comment: 07/10/18: -Continue home dosage of Eliquis 5mg BID for chronic a fib (10) Full code status Current Visit: No Status: Acute Base Code: Z78.9 - OTHER SPECIFIED HEALTH STATUS Comment: 07/10/18: - The patient is full code. - Hospitalization Course Disposition: Home Health Service Hospital Course: Mrs. Mcdaniel is a 88 y/o female with recent admission to [facility] for open fracture of the left distal radius and ulnar after a fall at home. The patient underwent ORIF on 06/26 and was discharged to [facility] for post-operative rehabilitation. The patient reports that she has had some falls at home, primarily as a result of her declining vision. The patient's son who is at bedside says that her loss of vision has really impaired her mobility and her falls are becoming for frequent and concerning. He says that he assists her with most of her daily living activities and she has a life alert necklace in case he is away from home. She does have a history of osteoporosis and is on Forteo and supplements with Vit D and calcium. She has several other co-morbidities; including atrial fibrillation on anticoagulation, dementia, and hypertension. On initial examination the patient is awake, alert and oriented but appears to have some memory lapses. She does not complain of any post-surgical pain and is able to ambulate with assistance. 07/09/18 Pt's weakness/deconditioning continues to improve. She has progressed very well with PT/OT. Falls more likely due to blindness than weakness per PT, pt is set up to have a home eval by PT for safety concerns. Plan to d/c home . Pt. states that she is excited to go home and she expressed her happiness with staff here at [facility]. Pt. is to f/u with Dr. Leos this week. F/U with pcp to discuss eliquis use with frequent falls, risk vs. benefit. Condition at Discharge: (2) Stable VTE Discharge VTE Reason For No Overlap Therapy: Not Indicated (on eliquis) Discharge Medications - Discharge Medications Home Medications: Ambulatory Orders Multivitamin [Multi-Vitamin Daily] 1 each PO DAILY 07/03/14 [Last Taken 03/31/16 ] Nitroglycerin [Nitrostat] 0.8 mg SL ASDIR PRN 07/03/14 [Last Taken Unknown] [place]-3 Fatty Acids/Fish Oil [Fish Oil 1,000 mg Softgel] 1,000 mg PO DAILY 11/26 [Last Taken 03/31/16] Calcium Citrate 200 mg PO DAILY tab 03/28/18 [Last Taken Unknown] Cholecalciferol (Vitamin D3) [Vitamin D3] 1,000 unit PO DAILY cap 03/28/18 [ Last Taken Unknown] Teriparatide [Forteo] 20 mcg SQ QD ml 03/28/18 [Last Taken Unknown] Donepezil HCl [Aricept] 5 mg PO BID 06/25/18 [Last Taken Unknown] Triamterene/Hydrochlorothiazid [Triamterene-Hctz 37.5-25 mg Cp] 1 each PO DAILY 06/25/18 [Last Taken Unknown] Zinc Oxide [Desitin] 10 gm TOP BID PRN tube 07/10/18 [Last Taken Unknown] Discharge Plan - Discharge Instructions Activity at Discharge: As Per Physical Therapy Diet at Discharge: Regular Diet Additional Instructions: Appointment with Dr. Funez at [facility] on 07/18/18 at 11:20. Quality Measures - Quality Measures Quality Measures: Atrial Fibrillation & Atrial Flutter: Chronic Anticoagulation Therapy, Advance Directives, Documentation of Current Medications in Medical Record, Elder Maltreatment Screen and Follow-Up Plan, Screening for High Blood Pressure and F/U Documented - Current Medications Quality Measure: Measure #130: Documentation of Current Medications Documentation of Current Medications: <Current Medications Documented/Reviewed> [[id number]] - Blood Pressure Screening Quality Measure: Screening for High Blood Pressure and Follow-Up Documented Does Patient Have Any of the Following: Active Dx of HTN Blood Pressure Classification: Hypertensive Reading Systolic Measurement: 148 Diastolic Measurement: 72 Screening for High Blood Pressure: Patient Exclusion, Hx of HTN [G9744] - Atrial Fibrillation and Atrial Flutter Quality Measure: Atrial Fibrillation & Atrial Flutter: Chronic Anticoagulation Therapy Does Patient Have Any of the Following: No CHADS2 Risk Stratification: Prior Stroke/TIA or Systemic Embolism, Age 75 or Greater, Hypertension Risk Stratification Summary: One or more high risk factors OR more than one moderate risk factor exists. [G8972] Anticoagulation Therapy: <Oral anticoagulant Prescribed> [G8967] - Advance Directives Quality Measure: Measure #47: Care Plan Advance Directives Established: Yes Advance Directives Information Provided To Patient: Already Provided Advance Directives on File: No Living Will: Yes Power of Vascular Surgery Physician: Yes Power of Vascular Surgery Physician Name: Sammy Mcdaniel Advance Care Planning: <Care Plan/Decision Maker Documented; Discussed & Documented> [4043F] - Elder Abuse Suspicion Index Screening: Elder Abuse Suspicion Index Screening Rely on people for bathing, dressing, shopping, banking, etc: Yes Prevented from getting food, clothes, medication, etc: No Made to feel shamed or threatened by someone: No Forced to sign papers or use money against will: No Feel afraid, touched in ways not wanted or hurt physically: No Poor eye contact, withdrawn, malnourished, cuts or bruises: No Screening Result: Negative result EASI Reference Information: Jaden BRIDGES, Pietro Dailey, Suly Hodge, Ruben Arellano.Development and validation of a tool to assist physicians identification of elder abuse: The Elder Abuse Suspicion Index (EASI ). Journal of Elder Abuse and Neglect, 2008; 20 (3): 276-300. - Elder Maltreatment Screen Quality Measures: Elder Maltreatment Screen and Follow-Up Plan Elder Maltreatment Screen: <Negative, No Follow-Up Plan Required> [G8734]
[2018-07-10] MEDS: PANTOPRAZOLE SODIUM 40 MG TABLET PO SCH (06:39)
[2018-07-10] MEDS: CALCIUM CARB/VITAMIN D 500MG/200IU PO SCH (09:28)
[2018-07-10] MEDS: DESVENLAFAXINE 50 MG PO SCH (09:28)
[2018-07-10] MEDS: METOPROLOL TART 25 MG TABLET PO SCH (09:28)
[2018-07-10] MEDS: MULTIVITAMINS/MINERALS TABLET PO SCH (09:28)
[2018-07-10] MEDS: ACETAMINOPHEN 325 MG TAB PO SCH (09:28)
[2018-07-10] MEDS: DONEPEZIL HCL 5 MG TABLET PO SCH (09:28)
[2018-07-10] MEDS: APIXABAN 5MG TABLET PO SCH (09:28)
[2018-07-10] MEDS: CHOLECALCIFEROL 1,000 UNIT TABLET PO SCH (09:28)
--- NOTE | 2018-07-10 11:09 | Rehab Discharge Summary ---
Patient Information - Patient Information Diagnosis: Deconditioning Ordered Treatment: OT Evaluate and Treat Surgery: Yes (ORIF left UE) Date of Surgery: 06/26/18 History: Detail (The patient fell sustaining a L radial/ulnar fracture and was transferred to [facility] swing bed program for rehabilitation.) Past Medical/Surgical Hx: PAST MEDICAL/SURGICAL HISTORY Past Surgical History hyst cats right LHA left hip fracture repair bladder suspension x's 2 heart cath ? stents 15-20 yrs ago PMH - Respiratory Hx Respiratory Disorders No PMH - Cardiovascular Hx Cardiovascular Disorders Yes Hx Heart Attack Yes: 15-20 years ago Hx Hypertension Yes: now hypotensive Hx Hypotension Yes Hx Transient Ischemic Attacks Yes: 10 yrs ago (TIA) Comment: health works every day PMH - Neuro Hx Neurological Disorders Yes Hx Cerebrovascular Accident Yes Hx Seizures No Hx Transient Ischemic Attacks Yes: 10 yrs ago (TIA) Comment: Poor vision d/t stroke PMH - GI Hx Gastrointestinal Disorders No PMH - Hx Genitourinary Disorders No Comment: hysterectomy PMH - Endocrine Hx Endocrine Disorders No PMH - Musculoskeletal Hx Musculoskeletal Disorders Yes Hx Arthritis Yes Comment: pain and cyst right index finger PMH - Psych Hx Psychiatric Problems No PMH - Hematology/Oncology Hx Hematology/Oncology No Disorders Premorbid Status: Detail (The patient prior to fall was ambulatory with standard cane with wide base of support. Per chart, son assists pt with self cares due to dementia and declining vision.) Social History: Detail (The patient lives with son in 3 story house with 6 stairs at the entrance with one railing. The patient's bedroom is on the second floor along with the bathroom she uses primarily. The bathroom is equipped with a tub/shower combination and a shower chair with no grab bars and a std. toilet. The house has a flight of 4 stairs, a landing 8 stairs and a landing then 2 to 3 stairs. One handrail is present as follows when acsending left side on the 4 steps, then right side on 8 steps, then L side on final steps. The patient has a standard walker, walker with 4 wheels, hurry cane, LBQC.) Precautions: [place], Fall, Other (NWB on the L UE, sling is present. Impaired vision.) Subjective Information - Subjective Information Per Patient Objective Data - Pain Pain Present: No - Mental Status Patient Orientation: Person (Pt oriented to place and self, unsure of date.), Place - Visual Perception Deficit (Pt has significant visual impairments which are worsening according to her.) - ROM Not within normal limits (Right UE AROM WNL, Left shoulder WNL, elbow, wrist and hand immobilized at this time.) - Strength/Tone Not within normal limits (Right UE and left shoulder strength WNL, left elbow and change agent not tested due to immobilization.) - Coordination Deficit (Right UE coordination WNL, left UE coordination limited due to immobilization.) - Bed Mobility Independent (Ind with supine to sit.) - Transfers Needs Assist (Pt requires CG assist for transfers due to impaired vision.) - Balance Balance Sitting: Good Balance Standing: Fair - Sensation Intact - Gait Detail (Pt ambulating with tripod cane with CG assist due to impaired vision.) - ADL's/IADL's Detail (Pt requires verbal cueing - min assist with showering, dressing, oral hygiene and toileting due to impaired vision. She is Ind with combing hair.) Therapy Assessment - Therapy Assessment Detail (Pt requires min assist for self cares due to vision. She is able to use left UE as an assist appropriately.) Problem List - Problem List Physical Therapy Problem List: Detail (1) Assistance with ambulation and transfers 2) Decreased standing balance 3)Visual impairment 3) Decreased ability to complete prolonged physical activity.) Occupational Therapy Problem List: Detail (1. Decreased Ind with showering. 2. Decreased Ind with dressing. 3. Decreased cognition. 4. Visual impairment) Goals - Goals Physical Therapy Goals: 1) The patient will ambulate household distances with appropriate assistive device, independently/supervision (Goal Met). 2) Assess Bed mobility( Goal Met). 3) The patient will be independent with all transfers (Partially met-supervison due to visual and cognitive deficits). 4) The patient will ambulate independently on a flight of stairs with supervision for safety. ( Partially met due to visual and cognitive deficits). 5) Assess balance using Objective balance scale. Occupational Therapy Goals: Goals partially met: 1. Pt will be Ind with showering after set up. 2. Pt will be Ind with total body dressing with verbal cues. 3. Pt will be oriented x 3. Prognosis - Prognosis Good Plan - Plan Physical Therapy Plan: Patient to discharge tomorrow to home. Home PT is recommended. Occupational Therapy Plan: Pt discharging home with family and home therapy.
== END 2018-07-10 15:05 | disposition home health service (06) | DRG 563 ==
LOC: MEDSURG 14:59
PROVIDERS: ADMIT Internal Medicine; ATTEND Internal Medicine
DX: S52.502A Unspecified fracture of the lower end of left radius, initial encounter for closed fracture (principal); L03.115 Cellulitis of right lower limb; S52.602A Unspecified fracture of lower end of left ulna, initial encounter for closed fracture; H54.7 Unspecified visual loss; R29.6 Repeated falls; M81.0 Age-related osteoporosis without current pathological fracture; I48.91 Unspecified atrial fibrillation; Z79.01 Long term (current) use of anticoagulants; F03.90 Unspecified dementia, unspecified severity, without behavioral disturbance, psychotic disturbance, mood disturbance, and anxiety; I10 Essential (primary) hypertension; I25.2 Old myocardial infarction; Z87.891 Personal history of nicotine dependence; Z95.5 Presence of coronary angioplasty implant and graft; Z86.73 Personal history of transient ischemic attack (TIA), and cerebral infarction without residual deficits
CPT/HCPCS: 97110; 97530; 97535; 99306; 99308; 99316

== ENCOUNTER 2019-03-21 12:43 | Emergency (ER) | payer MEDICARE, BC ==
--- NOTE | 2019-03-21 12:52 | Emergency Department Record ---
History of Present Illness - General Chief Complaint: Code Adult Stated Complaint: CARDIAC ARREST Time Seen by Provider: 03/21/19 12:44 Source: Family Mode of Arrival: EMS Limitations: Other - History of Present Illness Initial Comments: The patient is here by EMS due to not acting right today and becoming unresponsive at home. EMS was called and found the patient not breathing and in cardiac arrest. She initially had an agonal rhythm per EMS but no pulses. EMS was on scene for about 20 minutes and was with her a total of 30 minutes. She was in asystole for the great majority of the time. The patient did receive 6 Epi doses and one Bicarb. She did regain pulses briefly but then went back to asystole. MD Complaint: Found unresponsive, Stopped breathing, Seizure - Related Data Allergies Allergy/AdvReac Type Severity Reaction Status Date / Time meperidine HCl [From Demerol] Allergy Severe SWELLING Verified 03/21/19 12:46 (GENERAL) Review of Systems ROS unobtainable: Due to endotracheal tube Past Medical History - SOCIAL HISTORY Smoking Status: Former smoker Alcohol Use: None Drug Use: None - RESPIRATORY Hx Respiratory Disorders: No - CARDIOVASCULAR Hx Cardio Disorders: Yes Hx Heart Attack: Yes (15-20 years ago) Hx Hypertension: Yes (now hypotensive) Hx Hypotension: Yes Comment:: health works every day - NEURO Hx Neuro Disorders: Yes Hx CVA: Yes - GI Hx GI Disorders: No - Hx Genitourinary Disorders: No Comment:: hysterectomy - ENDOCRINE Hx Endocrine Disorders: No - MUSCULOSKELETAL Hx Musculoskeletal Disorders: Yes Hx Arthritis: Yes Comment:: pain and cyst right index finger - PSYCH Hx Psych Problems: No - HEMATOLOGY/ONCOLOGY Hx Hematology/Oncology Disorders: No Hx Blood Transfusions: No Family Medical History Any Significant Family History?: Yes Hx Heart Disease: Father, Mother Hx Stroke: Grandparents Physical Exam - General Limitations: Other (The patient is presently intubated and not breathing with fixed and dilated pupils.) - Eye Eye exam: Other (Fixed and dilated pupils.). negative: PERRL - Neck Neck exam: Normal inspection - Respiratory Respiratory exam: Normal lung sounds bilaterally (with bagging.) - Cardiovascular Cardiovascular Exam: negative: Regular rate, Normal rhythm, Normal heart sounds - GI/Abdominal GI/Abdominal exam: Soft, Normal bowel sounds. negative: Rebound, Rigid, Tenderness - Extremities Extremities exam: Normal inspection, Full ROM, Normal capillary refill. negative: Tenderness - Neurological Neurological exam: Other (The patient is not moving and has a GCS of 3.) Course - Reevaluation(s) Reevaluation #1: Due to the prolonged transport time in asystole the patient did receive 2 rounds of Epi and CPR for 11 minutes. She never regained pulses and never had a HR. On multiple US exams of her heart there was no heart beating and clearly no ventricular activity.The code was ran for 11 minutes and called at 12:36. I did inform the patient's son of the events and the patient's . 03/21/19 12:53 Reevaluation #2: The ME did present to the ER and did release the body to the home. It will not be an ME case. 03/21/19 13:42 Disposition Disposition: Discharge Clinical Impression: Cardiac arrest Disposition: / Condition: (5) Critical Forms: Patient Portal Access Time of Disposition: 13:43 Quality - Quality Measures Quality Measures: N/A - Blood Pressure Screening View Details: Yes Does Patient Have Any of the Following: Active Dx of HTN Systolic Measurement: ~ Screening for High Blood Pressure: Patient Exclusion, Hx of HTN [G9744]
== END 2019-03-21 14:00 | disposition expired ==
LOC: ER 12:43
DX: I46.9 Cardiac arrest, cause unspecified (principal); I10 Essential (primary) hypertension; I25.2 Old myocardial infarction; Z87.891 Personal history of nicotine dependence
CPT/HCPCS: 92950; 96374; 99284; 99285